=== PATIENT | female | born 1945 | race Caucasian/White ===

== ENCOUNTER 2022-09-27 20:11 | Inpatient (IN) | payer MEDICARE, BC, SELFPAY ==
--- NOTE | ~2022-09-27 | US_ITS ---
EXAMINATION: US RETROPERITONEAL LIMITED (RENAL ONLY) CLINICAL INFORMATION: Pulmonary edema. HIDA when.. COMPARISON: None TECHNIQUE: Grayscale and color Doppler imaging was obtained of both kidneys. FINDINGS: RIGHT KIDNEY: 10.2 x 4.1 x 4.7 cm (SAG x AP x TRV). The kidney is normal in size, contour, and echogenicity. Renal cortical thickness is normal. No calculi or focal parenchymal lesions. No hydronephrosis. LEFT KIDNEY: 9.1 x 5.2 x 3.7 cm (SAG x AP x TRV). The kidney is normal in size, contour, and echogenicity. Renal cortical thickness is normal. 8mm simple appearing lower pole cyst for which no follow-up imaging is required. No renal calculi or hydronephrosis of the left kidney. US/US renal BI IMPRESSION: No renal calculi or hydronephrosis of either kidney.
--- NOTE | ~2022-09-27 | XR_ITS ---
EXAMINATION: XR CHEST CLINICAL INFORMATION: Suspected pulmonary edema. COMPARISON: None TECHNIQUE: Frontal view of the chest was obtained. FINDINGS: Bilateral diffuse perihilar, upper lobar and lower lobar airspace opacities noted with trace amount of fluid within the right minor fissure and possible trace fluid within both pleural space. The heart size is within normal limits. The findings may represent pulmonary edema versus multilobar pneumonia or combination thereof. XR/XR chest 1V IMPRESSION: Abnormal chest radiograph showing bilateral diffuse airspace disease, possible bilateral trace pleural effusion and tiny trace fluid within the right minor fissure, may represent pulmonary edema versus multilobar pneumonia versus combination thereof.
--- NOTE | ~2022-09-27 | US_ITS ---
EXAMINATION: ULTRASOUND RENAL WITH DOPPLER CLINICAL INFORMATION: Hypertensive urgency COMPARISON: Renal ultrasound September 28, 2022 TECHNIQUE: Real-time grayscale, color Doppler, and duplex Doppler evaluation of the kidneys and renal vasculature was performed. FINDINGS: RENAL MEASUREMENTS: Right: 10.1 x 4.7 x 5.5 cm (Sag x AP x TV) Left: 10.0 x 5.1 x 3.7 cm (Sag x AP x TV) The renal parenchyma appears normal. No hydronephrosis or nephrolithiasis. DOPPLER INTERROGATION: Aorta: 146 cm/sec Right Main Renal Artery: Proximal: 179 cm/sec Mid: 167 cm/sec Distal: 103 cm/sec Left Main Renal Artery: Proximal: 107 cm/sec Mid: 135 cm/sec Distal: 116 cm/sec RESISTIVE INDICES: Right: 0.75-0.81 Left: 0.8-0.86 Renal-Aortic Ratio (RAR): Right: Cannot be accurately calculated due to elevated aortic velocity Left: Cannot be accurately calculated due to elevated aortic velocity US/US renal doppler IMPRESSION: -Mildly elevated velocity within the proximal right main renal artery may represent a mild stenosis. This can always be further evaluated with nonemergent CTA imaging of the abdomen if clinically indicated. -Resistive indices of both kidneys are at the upper limits of normal. Clinical correlation recommended. Mild medical renal disease not excluded.
[2022-09-27 20:19] VITALS: BP 196/99; BP 240/120; PULSE 122; PULSE 130; RESP 26; O2SAT 84; O2SAT 94; BMI 30.5
--- NOTE | 2022-09-27 20:20 | ECG_ITS ---
Test Reason : sob Blood Pressure : / mmHG Vent. Rate : 123 BPM Atrial Rate : 123 BPM P-R Int : 154 ms QRS Dur : 144 ms QT Int : 378 ms P-R-T Axes : 046 -16 099 degrees QTc Int : 541 ms Sinus tachycardia Possible Left atrial enlargement Left bundle branch block Abnormal ECG No previous ECGs available Referred By: Toya Dominguez Electronically Signed By:IRA PARKER MD
--- NOTE | 2022-09-27 20:23 | ED.SOB ---
HPI - SOB/Dyspnea General Chief Complaint: Dyspnea Stated Complaint: Respiratory Distress Time Seen by Provider: 09/27/22 20:18 Source: patient and EMS Mode of arrival: EMS Limitations: other (Shortness of breath) History of Present Illness HPI Narrative: Patient comes to the emergency room via [place] [facility]. EMS reports that the patient called because she had sudden onset of shortness of breath. Patient was saturating 84% on room air, stating that she fell as she had fluid in her lungs. Patient initially refused CPAP, eventually she was convinced and she started wearing the CPAP and started saturating in the mid 90s. Patient already received per EMS 1 in of nitropaste and started on CPAP. Arrival to the emergency room, patient received 80 mg of Lasix Related Data Home Medications Medication Instructions Recorded Confirmed coQ10 (ubiquinol) 100 mg capsule 100 mg PO DAILY 09/27/22 09/27/22 multivitamin 1 tab PO DAILY 09/27/22 09/27/22 pravastatin 40 mg tablet 40 mg PO BEDTIME 09/27/22 09/27/22 Allergies Allergy/AdvReac Type Severity Reaction Status Date / Time Unable to Assess Allergy Verified 09/27/22 20:18 Review of Systems Review of Systems: Constitutional : No Weight loss, No Fever, No Chills, No Night Sweats, No Fatigue, No Malaise ENT/Mouth : No Hearing loss, No Ear Pain, No Nasal Congestion, No Sinus Pain, No Hoarseness, No sore throat, No Rhinorrhea, No Swallowing Difficulty Eyes: No Eye Pain, No Swelling, No Redness, No Foreign Body, No Discharge, No Vision Changes Cardiovascular : No Chest Pain, No SOB, No Dyspnea on Exertion, No Orthopnea, No Edema, No Palpitations Respiratory : Rapid onset of severe shortness of breath Gastrointestinal : No Nausea, No Vomiting, No Diarrhea, No Constipation, No abdominal Pain, No Hematochezia, No Melena Genitourinary : no irregular bleeding, No Dysuria, No Urinary Frequency, No Hematuria, No Urinary Incontinence, No Urgency, No Flank Pain, No Urinary Flow Changes, No Hesitancy Musculoskeletal : No joint pain, No Myalgias, No Joint Swelling Skin : No Skin Lesions, No rash Neuro : No Weakness, No Numbness, No Paresthesias, No Loss of Consciousness, No Dizziness, No Headache Psych : No Anxiety/Panic, No Depression, No SI/HI/AH/VH, No Social Issues, Heme/Lymph: No Bruising, No Bleeding,No Lymphadenopathy Endocrine : No Polyuria, No Polydipsia, No Temperature Intolerance [facility] Past Medical History Medical History (Updated 09/27/22 @ 22:45 by Toya Dominguez MD) Mitral valve stenosis Social History Social History Advance Directives: No Physical Exam Vital Signs: Vital Signs: Last Vital Signs Temp 98.0 F 09/27/22 21:14 Pulse 85 09/27/22 21:14 Resp 22 H 09/27/22 21:14 BP 119/72 09/27/22 21:14 Pulse Ox 94 09/27/22 21:14 O2 Del Method 09/27/22 21:14 FiO2 30 09/27/22 21:14 BMI result Body Mass Index 30.5 Const: Other: Appearance: Alert. Oriented X3. Very anxious, significant shortness of breath Eyes: Pupils equal, round and reactive to light. ENT: Pharynx normal. Neck: Normal inspection. Neck supple. No lymph nodes noted. No crepitus CVS: Normal heart rate and rhythm. Pulses normal. Normal S1 and S2 Respiratory: Significant shortness of breath, bilateral rales and crackles, no wheezing Abdomen: Soft and nontender. No rigidity. No distention. Skin: Skin warm and dry. Normal skin color. Normal skin turgor. Extremities: No lower extremity edema. No Lacerations. No Rash Neuro: Oriented X 3. No motor deficit. No sensory deficit. Moving all extremities. No slurred speech. CN 2 through 12 grossly intact Psych: calm, cooperative Course Course Course Narrative: -prior to arrival, patient received nitro paste and was started on CPAP. Medications Administered Discontinued Medications Generic Name Dose Route Start Last Admin Trade Name Freq PRN Reason Stop Dose Admin Furosemide 80 mg 09/27/22 20:18 09/27/22 20:32 Furosemide 100 Mg/10 Ml Vial IVPUSH 09/27/22 20:19 80 mg ONCE ONE Administration Protocol Labetalol HCl 10 mg 09/27/22 20:46 09/27/22 20:51 Labetalol Hcl 100 Mg/20 Ml Vial IVPUSH 09/27/22 20:47 10 mg ONCE ONE Administration Medical Decision Making Medical Decision Making MDM Narrative: -patient's initial blood pressure was over 220 systolic. Patient received IV Lasix 80 mg, was started on CPAP, given nitroglycerin patch, and since the blood pressure was not improving, labetalol was given. -patient has no history of hypertension or CHF. -patient was eventually weaned off CPAP and now is on 2 L of oxygen, patient speaking full sentences, feeling well, blood pressure 119/72. -chest x-ray shows pulmonary edema. Chest x-ray was read as possible infiltrate. At this time, I do not suspect pneumonia at all. Patient has not had any symptoms until the shortness of breath started suddenly which is compatible with CHF. Antibiotics are not indicated at this time. Differential Diagnosis Differential Diagnoses: The differential diagnosis associated with the presentation includes (CHF, flash pulmonary edema) Admission/Observation Consideration of admission/observation: Escalation of care including admission/observation considered Consult Healthcare Provider Management of the patient was discussed with: Hospitalist Lab Data MDM Lab Attestation statement: I reviewed the patient's lab results. 09/27/22 21:00 09/27/22 21:01 Labs: Lab Results 09/27/22 09/27/22 09/27/22 Range/Units 21:00 21:00 21:00 WBC 7.2 (4.8-10.8) X10*3/uL RBC 4.72 (4.20-5.50) X10*6/uL Hgb 14.0 (12.0-16.0) g/dl Hct 42.3 (37.0-47.0) % MCV 89.6 (80.0-98.0) fL MCH 29.7 (27.0-33.0) pg MCHC 33.1 (31.0-35.0) g/dl RDW 13.0 (11.0-16.0) % Plt Count 197 (160-400) X10*3/uL MPV 11.5 (9.4-12.3) fL Immature Gran % (Auto) 0.3 (0.0-0.4) % Neut % (Auto) 82.6 H (45-73) % Lymph % (Auto) 10.1 L (20-40) % [place] % (Auto) 4.1 (2-11) % Eos % (Auto) 2.3 (0-4) % Baso % (Auto) 0.6 (0-2) % Lymph # (Auto) 0.7 L (1.2-4.9) X10*3/uL [place] # (Auto) 0.3 (0.1-1.2) X10*3/uL Eos # (Auto) 0.2 (0.0-0.4) X10*3/uL Baso # (Auto) 0.0 (0.0-0.2) X10*3/uL Abs Immat Gran (auto) 0.02 (0.00-0.03) X10*3/uL Absolute Neuts (auto) 6.0 (2.0-8.3) x10*3/uL Absolute Nucleated RBC 0.000 (0.0-0.012) X10*3/uL Nucleated RBC % (auto) 0.0 (0.0-0.2) /100WBC PT 10.7 (10.0-13.1) SEC INR 0.9 (0.9-1.1) VBG pH (7.32-7.43) VBG pCO2 mmHg VBG pO2 mmHg VBG HCO3 (22-26) mmol/L VBG O2 Saturation % VBG Base Excess mmol/L Sodium (135-145) mmol/L Potassium (3.3-5.1) mmol/L Chloride (96-108) mmol/L Carbon Dioxide (22-29) mmol/L Anion Gap (12-20) BUN (9-16) mg/dL Creatinine (0.5-1.4) mg/dL Estim Creat Clear Calc Estimated GFR Random Glucose (60-115) mg/dL Lactic Acid 1.1 (0.5-2.0) mmol/L Calcium (8.4-10.2) mg/dL Magnesium (1.6-2.6) mg/dL Total Bilirubin (0.0-1.0) mg/dL Direct Bilirubin (0.0-0.5) mg/dL AST (5-31) U/L ALT (0-31) U/L Alkaline Phosphatase (39-117) U/L Troponin I High Sens (<3.5-17.0) ng/L B-Natriuretic Peptide (<100) pg/mL Total Protein (6.5-8.0) g/dL Albumin (3.5-5.0) g/dL COVID-19 (SHY) (Negative) COVID-19 Clin Com 09/27/22 09/27/22 09/27/22 Range/Units 21:00 21:00 21:00 WBC (4.8-10.8) X10*3/uL RBC (4.20-5.50) X10*6/uL Hgb (12.0-16.0) g/dl Hct (37.0-47.0) % MCV (80.0-98.0) fL MCH (27.0-33.0) pg MCHC (31.0-35.0) g/dl RDW (11.0-16.0) % Plt Count (160-400) X10*3/uL MPV (9.4-12.3) fL Immature Gran % (Auto) (0.0-0.4) % Neut % (Auto) (45-73) % Lymph % (Auto) (20-40) % [place] % (Auto) (2-11) % Eos % (Auto) (0-4) % Baso % (Auto) (0-2) % Lymph # (Auto) (1.2-4.9) X10*3/uL [place] # (Auto) (0.1-1.2) X10*3/uL Eos # (Auto) (0.0-0.4) X10*3/uL Baso # (Auto) (0.0-0.2) X10*3/uL Abs Immat Gran (auto) (0.00-0.03) X10*3/uL Absolute Neuts (auto) (2.0-8.3) x10*3/uL Absolute Nucleated RBC (0.0-0.012) X10*3/uL Nucleated RBC % (auto) (0.0-0.2) /100WBC PT (10.0-13.1) SEC INR (0.9-1.1) VBG pH (7.32-7.43) VBG pCO2 mmHg VBG pO2 mmHg VBG HCO3 (22-26) mmol/L VBG O2 Saturation % VBG Base Excess mmol/L Sodium (135-145) mmol/L Potassium (3.3-5.1) mmol/L Chloride (96-108) mmol/L Carbon Dioxide (22-29) mmol/L Anion Gap (12-20) BUN (9-16) mg/dL Creatinine (0.5-1.4) mg/dL Estim Creat Clear Calc Estimated GFR Random Glucose (60-115) mg/dL Lactic Acid (0.5-2.0) mmol/L Calcium (8.4-10.2) mg/dL Magnesium (1.6-2.6) mg/dL Total Bilirubin (0.0-1.0) mg/dL Direct Bilirubin (0.0-0.5) mg/dL AST (5-31) U/L ALT (0-31) U/L Alkaline Phosphatase (39-117) U/L Troponin I High Sens 10.0 (<3.5-17.0) ng/L B-Natriuretic Peptide 218 H (<100) pg/mL Total Protein (6.5-8.0) g/dL Albumin (3.5-5.0) g/dL COVID-19 (SHY) Negative (Negative) COVID-19 Clin Com See Note 09/27/22 09/27/22 Range/Units 21:01 21:11 WBC (4.8-10.8) X10*3/uL RBC (4.20-5.50) X10*6/uL Hgb (12.0-16.0) g/dl Hct (37.0-47.0) % MCV (80.0-98.0) fL MCH (27.0-33.0) pg MCHC (31.0-35.0) g/dl RDW (11.0-16.0) % Plt Count (160-400) X10*3/uL MPV (9.4-12.3) fL Immature Gran % (Auto) (0.0-0.4) % Neut % (Auto) (45-73) % Lymph % (Auto) (20-40) % [place] % (Auto) (2-11) % Eos % (Auto) (0-4) % Baso % (Auto) (0-2) % Lymph # (Auto) (1.2-4.9) X10*3/uL [place] # (Auto) (0.1-1.2) X10*3/uL Eos # (Auto) (0.0-0.4) X10*3/uL Baso # (Auto) (0.0-0.2) X10*3/uL Abs Immat Gran (auto) (0.00-0.03) X10*3/uL Absolute Neuts (auto) (2.0-8.3) x10*3/uL Absolute Nucleated RBC (0.0-0.012) X10*3/uL Nucleated RBC % (auto) (0.0-0.2) /100WBC PT (10.0-13.1) SEC INR (0.9-1.1) VBG pH 7.38 (7.32-7.43) VBG pCO2 36 mmHg VBG pO2 93 mmHg VBG HCO3 21 L (22-26) mmol/L VBG O2 Saturation 98.0 % VBG Base Excess -2.8 mmol/L Sodium 140 (135-145) mmol/L Potassium 4.2 (3.3-5.1) mmol/L Chloride 105 (96-108) mmol/L Carbon Dioxide 25 (22-29) mmol/L Anion Gap 14 (12-20) BUN 23 H (9-16) mg/dL Creatinine 0.84 (0.5-1.4) mg/dL Estim Creat Clear Calc 51.7 Estimated GFR > 60 Random Glucose 125 H (60-115) mg/dL Lactic Acid (0.5-2.0) mmol/L Calcium 9.3 (8.4-10.2) mg/dL Magnesium 1.8 (1.6-2.6) mg/dL Total Bilirubin 0.9 (0.0-1.0) mg/dL Direct Bilirubin 0.3 (0.0-0.5) mg/dL AST 23 (5-31) U/L ALT 18 (0-31) U/L Alkaline Phosphatase 106 (39-117) U/L Troponin I High Sens (<3.5-17.0) ng/L B-Natriuretic Peptide (<100) pg/mL Total Protein 7.2 (6.5-8.0) g/dL Albumin 4.2 (3.5-5.0) g/dL COVID-19 (SHY) (Negative) COVID-19 Clin Com Independent Interpretation I performed an independent interpretation of an: Plain X-Ray (My interpretation of the chest x-ray: Pulmonary edema) Radiology Impression Discussion of test interpretation with radiology: I have reviewed the radiologist's reading. Radiologist Impression: FINDINGS: Bilateral diffuse perihilar, upper lobar and lower lobar airspace opacities noted with trace amount of fluid within the right minor fissure and possible trace fluid within both pleural space. The heart size is within normal limits. The findings may represent pulmonary edema versus multilobar pneumonia or combination thereof. XR/XR chest 1V IMPRESSION: Abnormal chest radiograph showing bilateral diffuse airspace disease, possible bilateral trace pleural effusion and tiny trace fluid within the right minor fissure, may represent pulmonary edema versus multilobar pneumonia versus combination thereof. Critical Care Time Critical Care Time Critical Care Time: Yes Total Critical Care Time: 60 Attestation: I have personally provided critical care time. Time includes review of lab data, radiology results, discussion with consultants, and monitoring for potential decompensation. Intervention performed as documented. Discharge Plan Discharge Clinical Impression: Flash pulmonary edema Patient Disposition: Admitted As Inpatient Prescriptions: No Action multivitamin Tablet 1 tab PO DAILY pravastatin 40 mg Tablet 40 mg PO BEDTIME coQ10 (ubiquinol) 100 mg Capsule 100 mg PO DAILY
[2022-09-27] MEDS: Furosemide 100 MG/10 ML VIAL 80 MG IVPUSH (20:32)
--- NOTE | 2022-09-27 20:39 | PC.NURSE ---
Pt CAMP x 4 weaking a CPap fio2 at 30 % . RN administered lasix 80 mg IV per order.
[2022-09-27 20:47] VITALS: PULSE 123; RESP 26; O2SAT 96
[2022-09-27] MEDS: Labetalol HCL 100 MG/20 ML VIAL 10 MG IVPUSH (20:51)
[2022-09-27 20:57] VITALS: BP 158/100; PULSE 117; RESP 20; O2SAT 94
--- NOTE | 2022-09-27 21:09 | PC.NURSE ---
Purewic placed for comfort. Respiratory therapy at pt bedside to assist with covid test and covid swab.
[2022-09-27 21:11] LABS: MANUAL DIFF FLAG NO
[2022-09-27 21:14] VITALS: BP 119/72; PULSE 85; RESP 22; TEMP 36.7; O2SAT 94
[2022-09-27 21:15] LABS: Basophils Percent Auto 0.6 % (0-2); Eosinophils Absolute Auto 0.2 X10*3/uL (0.0-0.4); Eosinophils Percent Auto 2.3 % (0-4); Hematocrit 42.3 % (37.0-47.0); Imm Gran Abs Auto 0.02 X10*3/uL (0.00-0.03); Imm Gran Pct Auto 0.3 % (0.0-0.4); Lymphocytes Absolute Auto 0.7 X10*3/uL (1.2-4.9); Lymphocytes Percent Auto 10.1 % (20-40); Mean Corpuscular HGB Conc 33.1 g/dl (31.0-35.0); Mean Corpuscular Hemoglobin 29.7 pg (27.0-33.0); Mean Corpuscular Volume 89.6 fL (80.0-98.0); Mean Platelet Volume 11.5 fL (9.4-12.3); Monocytes Absolute Auto 0.3 X10*3/uL (0.1-1.2); Monocytes Percent Auto 4.1 % (2-11); Neutrophils Percent Auto 82.6 % (45-73); Platelet Count 197 X10*3/uL (160-400); Red Blood Count 4.72 X10*6/uL (4.20-5.50); White Blood Count 7.2 X10*3/uL (4.8-10.8)
[2022-09-27 21:18] LABS: INTERNATIONAL NORM RATIO 0.9 (0.9-1.1); Prothrombin Time 10.7 SEC (10.0-13.1)
--- NOTE | 2022-09-27 21:24 | PHA.MEDREC ---
Pharmacy Consult ? Medication Reconciliation Pharmacy has completed the medication reconciliation.
[2022-09-27 21:31] LABS: VBG Base Excess -2.8 mmol/L; VBG HCO3 21 mmol/L (22-26); VBG pCO2 36 mmHg; VBG pH 7.38 (7.32-7.43); VBG pO2 93 mmHg
[2022-09-27 21:34] LABS: Lactic Acid 1.1 mmol/L (0.5-2.0)
[2022-09-27 21:38] LABS: Alanine Aminotransferase 18 U/L (0-31); Albumin Level 4.2 g/dL (3.5-5.0); Alkaline Phosphatase 106 U/L (39-117); Anion Gap 14 (12-20); Aspartate Amino Transferase 23 U/L (5-31); Bilirubin Direct 0.3 mg/dL (0.0-0.5); Bilirubin Total 0.9 mg/dL (0.0-1.0); Blood Urea Nitrogen 23 mg/dL (9-16); Calcium 9.3 mg/dL (8.4-10.2); Carbon Dioxide 25 mmol/L (22-29); Chloride 105 mmol/L (96-108); Creatinine Clr Calc Pharmacy 51.7; Estimated Glomerular Filt Rate > 60; Glucose Random 125 mg/dL (60-115); Magnesium 1.8 mg/dL (1.6-2.6); Potassium 4.2 mmol/L (3.3-5.1); Sodium 140 mmol/L (135-145); Total Protein 7.2 g/dL (6.5-8.0)
[2022-09-27 21:48] LABS: B Type Natriuretic Peptide 218 pg/mL (<100)
[2022-09-27 21:49] LABS: COVID-19 Test Negative (Negative); IDNOW Serial# 08D9AD1C
[2022-09-27 22:02] LABS: Venous Blood Gas Refer to POC result
--- NOTE | 2022-09-27 22:24 | PM.IMHP ---
History of Present Illness Date of Service: 09/27/22 Chief Complaint: Dyspnea This is a 77-year-old female with pertinent history of mitral stenosis, mixed hyperlipidemia who presents to the emergency department for evaluation of dyspnea. Patient presents today for sudden onset of dyspnea. Upon EMS arrival, patient was found to be hypoxemic and saturating in the low 80s on room air. When she arrived, patient's blood pressure was 196/99. Patient was found to have bilateral crackles and imaging was concerning for pulmonary edema. Patient was placed on CPAP and nitro paste and labetalol ordered. Patient states she never has had high blood pressure. She underwent DEBORAH at [facility] in August when she was told that she has mitral stenosis. Patient was asked to follow up with repeat echo in 6 months. Patient states her blood pressure is usually around 140/90. She was advised to take metoprolol but refused. Upon my evaluation, patient states her dyspnea improved and was on 2 L supplemental oxygen. Patient denies fever, chills, chest discomfort, palpitations, abdominal pain, changes in urinary or bowel habits. Review of Systems Constitutional: Constitutional: Reports no additional constitutional complaints Cardiovascular: Cardiovascular: Reports dyspnea Respiratory: Respiratory: Reports dyspnea Gastrointestinal: Gastrointestinal: Reports no additional gastrointestinal complaints Genitourinary: Genitourinary: Reports no additional female genitourinary complaints [facility] Medical History Mitral valve stenosis Mixed hyperlipidemia Functional capacity: independent ambulation Pertinent family history: Not significant due to age Social History Advance Directives: No Meds Allergies Allergy/AdvReac Type Severity Reaction Status Date / Time Unable to Assess Allergy Verified 09/27/22 20:18 Active Medications: Current Medications Pharmacy Consult (Consult Rx Perform Med Rec) 1 each MISCELLANE ONCE PRN PRN Reason: Consult order Home Medications Medication Instructions Recorded Confirmed Last Taken Type coQ10 (ubiquinol) 100 mg capsule 100 mg PO DAILY 09/27/22 09/27/22 09/26/22 History multivitamin 1 tab PO DAILY 09/27/22 09/27/22 09/26/22 History pravastatin 40 mg tablet 40 mg PO BEDTIME 09/27/22 09/27/22 09/26/22 History Physical Exam Vital Signs and Narrative: Vital Signs: Last Vital Signs Temp 98.0 F 09/27/22 21:14 Pulse 85 09/27/22 21:14 Resp 22 H 09/27/22 21:14 BP 119/72 09/27/22 21:14 Pulse Ox 94 09/27/22 21:14 O2 Del Method 09/27/22 21:14 FiO2 30 09/27/22 21:14 BMI result Body Mass Index 30.5 Elderly female lying in bed in mild distress on supplemental oxygen Neck supple, no JVD Regular rate and rhythm, S1-S2 heard Bilateral crackles Abdomen soft nontender, no guarding, no rigidity Patient is awake, alert and oriented to self, place, time and person ; no focal motor deficit Psych: Anxious No pedal edema Results Labs 09/27/22 21:00 09/27/22 21:01 Labs: Laboratory Results - last 24 hr 09/27/22 09/27/22 09/27/22 21:00 21:00 21:00 MCV 89.6 MCH 29.7 MCHC 33.1 RDW 13.0 Plt Count 197 MPV 11.5 Immature Gran % (Auto) 0.3 Neut % (Auto) 82.6 H Lymph % (Auto) 10.1 L [place] % (Auto) 4.1 Eos % (Auto) 2.3 Baso % (Auto) 0.6 Lymph # (Auto) 0.7 L [place] # (Auto) 0.3 Eos # (Auto) 0.2 Baso # (Auto) 0.0 Abs Immat Gran (auto) 0.02 Absolute Neuts (auto) 6.0 Absolute Nucleated RBC 0.000 Nucleated RBC % (auto) 0.0 PT 10.7 INR 0.9 VBG pH VBG pCO2 VBG pO2 VBG HCO3 VBG O2 Saturation VBG Base Excess Anion Gap Estim Creat Clear Calc Estimated GFR Random Glucose Lactic Acid 1.1 Calcium Magnesium Total Bilirubin Direct Bilirubin AST ALT Alkaline Phosphatase Troponin I High Sens B-Natriuretic Peptide Total Protein Albumin COVID-19 (SHY) COVID-19 Clin Com 09/27/22 09/27/22 09/27/22 21:00 21:00 21:00 MCV MCH MCHC RDW Plt Count MPV Immature Gran % (Auto) Neut % (Auto) Lymph % (Auto) [place] % (Auto) Eos % (Auto) Baso % (Auto) Lymph # (Auto) [place] # (Auto) Eos # (Auto) Baso # (Auto) Abs Immat Gran (auto) Absolute Neuts (auto) Absolute Nucleated RBC Nucleated RBC % (auto) PT INR VBG pH VBG pCO2 VBG pO2 VBG HCO3 VBG O2 Saturation VBG Base Excess Anion Gap Estim Creat Clear Calc Estimated GFR Random Glucose Lactic Acid Calcium Magnesium Total Bilirubin Direct Bilirubin AST ALT Alkaline Phosphatase Troponin I High Sens 10.0 B-Natriuretic Peptide 218 H Total Protein Albumin COVID-19 (SHY) Negative COVID-19 Clin Com See Note 09/27/22 09/27/22 21:01 21:11 MCV MCH MCHC RDW Plt Count MPV Immature Gran % (Auto) Neut % (Auto) Lymph % (Auto) [place] % (Auto) Eos % (Auto) Baso % (Auto) Lymph # (Auto) [place] # (Auto) Eos # (Auto) Baso # (Auto) Abs Immat Gran (auto) Absolute Neuts (auto) Absolute Nucleated RBC Nucleated RBC % (auto) PT INR VBG pH 7.38 VBG pCO2 36 VBG pO2 93 VBG HCO3 21 L VBG O2 Saturation 98.0 VBG Base Excess -2.8 Anion Gap 14 Estim Creat Clear Calc 51.7 Estimated GFR > 60 Random Glucose 125 H Lactic Acid Calcium 9.3 Magnesium 1.8 Total Bilirubin 0.9 Direct Bilirubin 0.3 AST 23 ALT 18 Alkaline Phosphatase 106 Troponin I High Sens B-Natriuretic Peptide Total Protein 7.2 Albumin 4.2 COVID-19 (SHY) COVID-19 Clin Com Imaging Radiologist's Impressions: Impressions Chest X-Ray 09/27/22 20:25 IMPRESSION: Abnormal chest radiograph showing bilateral diffuse airspace disease, possible bilateral trace pleural effusion and tiny trace fluid within the right minor fissure, may represent pulmonary edema versus multilobar pneumonia versus combination thereof. Assessment and Plan (1) Flash pulmonary edema: Status: Acute Plan This is a 77-year-old female with pertinent history of mitral stenosis, mixed hyperlipidemia who presents to the emergency department for evaluation of dyspnea. #. Acute hypoxemic respiratory failure secondary to pulmonary edema in the setting of hypertensive emergency: Initially was placed on CPAP in the ER. Currently on 2 L supplemental oxygen. Was given nitro paste and labetalol in the ER with improvement in blood pressure. Patient resistant to p.o. antihypertensives. Does have history of mitral stenosis. Obtain records from [facility] Consulting Cardiology, appreciate assistance. Continue IV Lasix and monitor oxygen saturation. #. Mixed hyperlipidemia: On statin DVT prophylaxis: Lovenox 40 mg daily Full code Cardiac diet Admit as inpatient and will require two night minimum hospital stay for supplemental oxygen Time Spent With Patient Time: Total time managing care of this patient today ____ minutes. Quality Stroke Does the patient have a stroke diagnosis?: No VTE Prior VTE?: No VTE Risk Level:: Medical - moderate - high VTE Device Contraindication: Treatment Not Indicated VTE Drug Contraindication: N/A - Med Ordered
[2022-09-28] MEDS: Enoxaparin Sodium 40 MG/0.4 ML SYRINGE SUBCUT ×2 (00:06→23:27)
[2022-09-28] MEDS: 0.9 % Sodium Chloride Flush 3 ML SYRINGE IVFLUSH ×4 (00:07→20:48)
[2022-09-28 05:58] VITALS: BP 128/59; PULSE 80; RESP 16; TEMP 36.6; O2SAT 99
[2022-09-28 06:29] LABS: MANUAL DIFF FLAG NO
[2022-09-28 06:37] LABS: Basophils Percent Auto 0.5 % (0-2); Eosinophils Absolute Auto 0.1 X10*3/uL (0.0-0.4); Eosinophils Percent Auto 1.2 % (0-4); Hematocrit 39.2 % (37.0-47.0); Hemoglobin 12.7 g/dl (12.0-16.0); Imm Gran Abs Auto 0.02 X10*3/uL (0.00-0.03); Imm Gran Pct Auto 0.3 % (0.0-0.4); Lymphocytes Absolute Auto 1.1 X10*3/uL (1.2-4.9); Mean Corpuscular HGB Conc 32.4 g/dl (31.0-35.0); Mean Corpuscular Hemoglobin 28.8 pg (27.0-33.0); Mean Corpuscular Volume 88.9 fL (80.0-98.0); Mean Platelet Volume 11.4 fL (9.4-12.3); Monocytes Absolute Auto 0.5 X10*3/uL (0.1-1.2); Monocytes Percent Auto 6.3 % (2-11); Neutrophils Percent Auto 77.7 % (45-73); Platelet Count 194 X10*3/uL (160-400); Red Blood Count 4.41 X10*6/uL (4.20-5.50); Red Cell Distribution Width 13.1 % (11.0-16.0); White Blood Count 7.7 X10*3/uL (4.8-10.8)
[2022-09-28] MEDS: Acetaminophen 325 MG TABLET 650 MG PO (06:41)
[2022-09-28 06:50] LABS: Anion Gap 16 (12-20); Blood Urea Nitrogen 23 mg/dL (9-16); Carbon Dioxide 23 mmol/L (22-29); Chloride 105 mmol/L (96-108); Creatinine Clr Calc Pharmacy 58.7; Estimated Glomerular Filt Rate > 60; Glucose Random 96 mg/dL (60-115); Potassium 4.2 mmol/L (3.3-5.1); Sodium 140 mmol/L (135-145)
[2022-09-28 07:04] VITALS: BP 129/53; PULSE 70; RESP 18; O2SAT 99
--- NOTE | 2022-09-28 08:29 | MHC.EDTECH ---
Assisted pt to bedside commode. Pt returned to bed comfortably, bed in low, locked position. Call edwards in reach, able to make needs known.
[2022-09-28 08:37] LABS: B Type Natriuretic Peptide 221 pg/mL (<100)
[2022-09-28] MEDS: ALPRAZolam 0.25 MG TABLET PO (09:52)
[2022-09-28] MEDS: Multivitamin TABLET 1 TAB PO (09:52)
--- NOTE | 2022-09-28 10:00 | CA_ITS ---
Transthoracic Echocardiogram Patient (Last, First, Middle): Autumn Marie C Gender: Female Date of : 1945 Age: 77 Procedure Date: 09/28/2022 Procedure Type: Transthoracic Echocardiogram Location: ER Height: 157.48 cm Weight: 75.75 kg BSA: 1.77 m2 Heart Rate: 79 bpm BP: 124 / 58 mmHg Etl Lead: CANDIDO Referring MD: Gudelia ESQUEDA Hat Lacer: Enrrique Alonso MD Symptoms: pulm edema Study Quality: Adequate ECG Rhythm: Sinus Conclusions: - 1. Normal LV systolic function with impaired relaxation filling pattern, filling pressures cannot be evaluated due to presence of mitral stenosis 2. At least mildly dilated left atrium 3. Moderate aortic stenosis 4. 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 Mild to moderate elevation right bronchus systolic pressure 6. No pericardial effusion Findings Left Ventricle Normal left ventricular size, thickness, and systolic function. The visually estimated ejection fraction is between 60-65%. Spectral Doppler is indicative of an impaired relaxation filling pattern. There is mild septal asymmetric hypertrophy. Right Ventricle Normal right ventricular cavity size and systolic function. Atria The left atrium is mildly dilated. There is no evidence of interatrial shunt. The right atrium is normal in size. Aortic Valve The aortic valve was not well visualized. There is mild calcification of the aortic valve. There is moderate aortic valve stenosis. The mean gradient is 25 mmHg. The aortic valve area is 1.39 cm2. There is no aortic valve regurgitation. Mitral Valve The mitral valve appears rheumatic. There is moderate anterior and posterior mitral leaflet thickening. There is severe mitral valve stenosis. MVA by continuity equation as well PISA is 1.04-1.11 sq cm, c/y severe MS. Pulmonic Valve The pulmonic valve is likely normal. There is mild pulmonic valve regurgitation. Tricuspid Valve Normal tricuspid valve structure. There is mild tricuspid valve regurgitation. Normal right atrial pressure. Mild to moderate pulmonary hypertension is present. Great Vessels All visible segments of the aorta are normal in size. The pulmonary artery was not well visualized. Venous The inferior vena cava is normal in size and collapses greater than 50% with inspiration. Pericardium/Pleural There is no evidence of pericardial effusion. Prior Study Comparison No prior study available for comparison. Measurements 2D Linear Measurements IVSd: 1.43 0.6-0.9/0.6-1.0 cm LVIDd: 4.23 3.9-5.3/4.2-5.9 cm LVIDd Index: 2.39 2.4-3.2/2.2-3.1 cm/m2 LVIDs: 2.70 2.0-3.6 cm LVPWd: 0.89 0.7-1.1 cm LA Diam: 4.30 2.7-3.8/3.0-4.0 cm LAIDs Index: 2.43 1.5-2.3 cm/m2 LV Mass: 213.14 67-162/88-224 g LV Mass Index: 120.42 43-95/49-115 g/m2 LVOT Diam: 1.80 3.0+(-)1.3 cm 2D Systolic Function EF 4C: 56.90 >55% EF 2C: 61.90 >55% EF BiP: 59.90 >55% Mitral Valve MV VTI: 0.75 MV Pk Dewayne: 2.59 MV Mn Dewayne: 1.79 MV Pk Grad: 27.00 MV Mn Grad: 14.00 MV Pk E: 1.83 MV PK A: 2.21 MV Decel Time: 258.00 E/A: 0.80 E'Lateral: 6.96 E'Medial: 5.66 E/E' Med: 32.30 E/E' Lat: 26.30 PHT: 76.00 MVA PHT: 2.89 MVA Continuity: 1.09 Decel [place]: 7.09 Aortic Valve AoV Pk Dewayne: 3.36 AoV Mn Dewayne: 2.35 AoV VTI: 0.67 AoV Pk Grad: 45.00 Aov Mn Grad: 25.00 NEETA Cont.VTI: 1.39 AI Pk Dewayne: 4.07 AI [place]: 2.85 LVOT LVOT Pk Dewayne: 1.71 LVOT Mn Dewayne: 1.23 LVOT VTI: 0.37 LVOT Pk Grad: 12.00 LVOT Mn Grad: 7.00 LVOT Diam: 1.80 LVOT Area: 2.54 Diastolic Function MV Pk E: 1.83 MV Pk A: 2.21 E/A: 0.80 E'Medial: 5.66 E/E' Med: 32.30 E' Laterial: 6.96 E/E' Lat: 26.30 Right Ventricle TAPSE (mm): 23.00 TVS' Dewayne: 12.30 Tricuspid Valve TR Pk Dewayne: 3.27 TR Pk Grad: 43.00 RA Press: 3.00 RVSP: 46.00 Great Vessels Aorta Sinus of Valsalva: 2.20 2.0-3.5 cm Ao Asc: 3.10 2.1-3.4 cm Pulmonary Veins Pulm Vein S/D 1.30 Pulmonary Valve PV Pk Dewayne: 1.36 Peak PV Grad: 7.00 Updated in Other Vendor System with Status of Final Enrrique Alonso MD electronically signed on 09/29/2022 10:41:00 AM with status of Final
[2022-09-28 11:08] VITALS: BP 124/58; PULSE 65; RESP 14; O2SAT 97
--- NOTE | 2022-09-28 11:56 | PM.CNCAR ---
History of Present Illness History of Present Illness Date of Service: 09/28/22 Consult reason: other (Flash pulmonary edema) Chief complaint: Dyspnea Narrative: I was requested to see Autumn in cardiology consultation today for flash pulmonary edema. She is extremely anxious 77-year-old woman with prior history of mitral stenosis. As per her she has been evaluated in [facility] and has seen Dr Richie Alarcon at [facility] for consideration for possible intervention on the mitral stenosis. Seems like she is calcific mitral stenosis by echocardiogram she underwent DEBORAH in [facility]. Unfortunately not have a copy of that report. She was told that she would not be a good candidate for intervention as she had no symptoms. She is generally very active and independent and says can walk up and down stairs without any issues. Yesterday she had a large bowl of thigh food with probably lot of salt in it and subsequently started feeling not well and started feeling chest pressure and then got really short of breath. She go to local gas station because she needs to use the bathroom and by the time she got finish she got severely short of breath and arms for ambulance. Ambulance brought her to the emergency room here. She was noted to be in acute pulmonary edema with acute hypertension. She was diuresed and given IV medications control blood pressure. She rapidly improved and currently using without oxygen back to her baseline feeling well. Blood pressure is well controlled. Her EKG on admission shows sinus tachycardia with left bundle-branch block. She is not aware of having left bundle-branch block in the past. Her BNP is mildly elevated in the 200 range and her chest x-ray consistent with acute pulmonary edema. She is extremely anxious about this event. She also has had workup that has been fragmented. Review of Systems Constitutional: Constitutional: Reports no additional constitutional complaints Cardiovascular: Cardiovascular: Reports no additional cardiovascular complaints, Reports chest pain at rest, Denies leg edema, Denies lightheadedness, Denies Loss of Consciousness, Denies palpitations, Reports dyspnea, Reports dyspnea on exertion and Reports other (She felt like she was crackly although were) Respiratory: Respiratory: Denies no additional respiratory complaints, Reports dyspnea and Reports dyspnea on exertion Gastrointestinal: Gastrointestinal: Reports no additional gastrointestinal complaints Integumentary/Breasts: Skin/Breast: Reports system reviewed and no additional complaints, except as docu Neurologic: Reports system reviewed and no additional complaints, except as documented Psychiatric: Psychiatric: Reports no additional psychiatric complaints Endocrine: Endocrine: Reports no additional endocrine complaints and Denies palpitations Hematologic/Lymphatic: Hematologic/Lymphatic: Reports no additional hematologic/lymphatic complaints Allergic/Immunologic: Allergic/Immunologic: Reports no additional allergic/immunologic complaints [facility] Past Medical History Medical History Mitral valve stenosis Mixed hyperlipidemia Functional capacity: independent ambulation Social History Social History Patient Tobacco Use Status: Tobacco use Unknown Advance Directives: No Meds Allergies Allergy/AdvReac Type Severity Reaction Status Date / Time Unable to Assess Allergy Verified 09/27/22 20:18 Active Medications: Current Medications Acetaminophen (Acetaminophen 325 Mg Tablet) 650 mg PO Q6H PRN PRN Reason: Pain, Mild (Pain Scale 1-3) Last Admin: 09/28/22 06:41 Dose: 650 mg Enoxaparin Sodium (Enoxaparin Sodium 40 Mg/0.4 Ml Syringe) 40 mg SUBCUT Q24H JENNY Last Admin: 09/28/22 00:06 Dose: 40 mg Furosemide (Furosemide 40 Mg/4 Ml Vial) 40 mg IVPUSH ONCE JENNY; Protocol Furosemide (Furosemide 20 Mg Tablet) 20 mg PO DAILY JENNY; Protocol Labetalol HCl (Labetalol Hcl 100 Mg Tablet) 50 mg PO BID JENNY; Protocol Lorazepam (Lorazepam 0.5 Mg Tablet) 0.5 mg PO Q8H PRN PRN Reason: Anxiety Melatonin (Melatonin 3 Mg Tablet) 6 mg PO BEDTIME PRN PRN Reason: Insomnia Multivitamins/Vitamin C (Multivitamin Tablet) 1 tab PO DAILY JENNY Last Admin: 09/28/22 09:52 Dose: 1 tab Ondansetron HCl (Ondansetron Hcl 4 Mg/2 Ml Vial) 4 mg IVPUSH Q8H PRN PRN Reason: Nausea and Vomiting Pharmacy Consult (Consult Rx Perform Med Rec) 1 each MISCELLANE ONCE PRN PRN Reason: Consult order Pravastatin Sodium (Pravastatin Sodium 40 Mg Tablet) 40 mg PO BEDTIME JENNY Sodium Chloride (0.9 % Sodium Chloride Flush 3 Ml Syringe) 3 ml IVFLUSH QSHIFT [facility] Last Admin: 09/28/22 09:53 Dose: 3 ml Home Medications Medication Instructions Recorded Confirmed Last Taken Type coQ10 (ubiquinol) 100 mg capsule 100 mg PO DAILY 09/27/22 09/27/22 09/26/22 History multivitamin 1 tab PO DAILY 09/27/22 09/27/22 09/26/22 History pravastatin 40 mg tablet 40 mg PO BEDTIME 09/27/22 09/27/22 09/26/22 History Physical Exam Vital Signs: Vital Signs: Last Vital Signs Temp 97.9 F 09/28/22 05:58 Pulse 65 09/28/22 11:08 Resp 14 09/28/22 11:08 BP 124/58 L 09/28/22 11:08 Pulse Ox 97 09/28/22 11:08 O2 Del Method 09/28/22 11:08 O2 Flow Rate 2 09/28/22 11:08 FiO2 30 09/27/22 21:14 BMI result Body Mass Index 30.5 Const: General: cooperative, comfortable, no acute distress, alert, awake and anxious Nutritional Appearance: overweight Orientation/consciousness: patient oriented x3 Limitations: no limitations HEENT: Head: Yes normocephalic and Yes atraumatic Neck: Neck: Yes trachea midline, Yes supple and Yes no JVD Chest: Chest palpation & inspection: normal inspection of the chest Resp: Effort & Inspection: normal respiratory effort Auscultation: clear to auscultation bilaterally Cardio: Jugular venous distension: no JVD Palpation: normal PMI Rate: regular rate Rhythm: regular rhythm Heart sounds: S1 normal heart sound present, S2 normal heart sound present, no click, no gallops and Murmur heart sound present diastolic harsh and at the left sternal border Peripheral pulses: Peripheral pulses 2+ throughout GI: Auscultation: normal bowel sounds Skin: General skin exam: no rashes or lesions noted Neuro: General: patient oriented x3 and no focal motor deficits Extrem: General: Yes no clubbing, cyanosis or edema Objective Labs and Meds 09/28/22 06:22 09/28/22 06:22 Lab results: Laboratory Results - last 24 hr 09/27/22 09/27/22 09/27/22 21:00 21:00 21:00 WBC 7.2 RBC 4.72 Hgb 14.0 Hct 42.3 MCV 89.6 MCH 29.7 MCHC 33.1 RDW 13.0 Plt Count 197 MPV 11.5 Immature Gran % (Auto) 0.3 Neut % (Auto) 82.6 H Lymph % (Auto) 10.1 L [place] % (Auto) 4.1 Eos % (Auto) 2.3 Baso % (Auto) 0.6 Lymph # (Auto) 0.7 L [place] # (Auto) 0.3 Eos # (Auto) 0.2 Baso # (Auto) 0.0 Abs Immat Gran (auto) 0.02 Absolute Neuts (auto) 6.0 Absolute Nucleated RBC 0.000 Nucleated RBC % (auto) 0.0 PT 10.7 INR 0.9 VBG pH VBG pCO2 VBG pO2 VBG HCO3 VBG O2 Saturation VBG Base Excess Sodium Potassium Chloride Carbon Dioxide Anion Gap BUN Creatinine Estim Creat Clear Calc Estimated GFR Random Glucose Lactic Acid 1.1 Calcium Magnesium Total Bilirubin Direct Bilirubin AST ALT Alkaline Phosphatase Troponin I High Sens B-Natriuretic Peptide Total Protein Albumin COVID-19 (SHY) COVID-19 [place] 09/27/22 09/27/22 09/27/22 21:00 21:00 21:00 WBC RBC Hgb Hct MCV MCH MCHC RDW Plt Count MPV Immature Gran % (Auto) Neut % (Auto) Lymph % (Auto) [place] % (Auto) Eos % (Auto) Baso % (Auto) Lymph # (Auto) [place] # (Auto) Eos # (Auto) Baso # (Auto) Abs Immat Gran (auto) Absolute Neuts (auto) Absolute Nucleated RBC Nucleated RBC % (auto) PT INR VBG pH VBG pCO2 VBG pO2 VBG HCO3 VBG O2 Saturation VBG Base Excess Sodium Potassium Chloride Carbon Dioxide Anion Gap BUN Creatinine Estim Creat Clear Calc Estimated GFR Random Glucose Lactic Acid Calcium Magnesium Total Bilirubin Direct Bilirubin AST ALT Alkaline Phosphatase Troponin I High Sens 10.0 B-Natriuretic Peptide 218 H Total Protein Albumin COVID-19 (SHY) Negative COVID-19 [employer] Com See Note 09/27/22 09/27/22 09/28/22 21:01 21:11 06:22 WBC 7.7 RBC 4.41 Hgb 12.7 Hct 39.2 MCV 88.9 MCH 28.8 MCHC 32.4 RDW 13.1 Plt Count 194 MPV 11.4 Immature Gran % (Auto) 0.3 Neut % (Auto) 77.7 H Lymph % (Auto) 14.0 L [place] % (Auto) 6.3 Eos % (Auto) 1.2 Baso % (Auto) 0.5 Lymph # (Auto) 1.1 L [place] # (Auto) 0.5 Eos # (Auto) 0.1 Baso # (Auto) 0.0 Abs Immat Gran (auto) 0.02 Absolute Neuts (auto) 6.0 Absolute Nucleated RBC 0.000 Nucleated RBC % (auto) 0.0 PT INR VBG pH 7.38 VBG pCO2 36 VBG pO2 93 VBG HCO3 21 L VBG O2 Saturation 98.0 VBG Base Excess -2.8 Sodium 140 Potassium 4.2 Chloride 105 Carbon Dioxide 25 Anion Gap 14 BUN 23 H Creatinine 0.84 Estim Creat Clear Calc 51.7 Estimated GFR > 60 Random Glucose 125 H Lactic Acid Calcium 9.3 Magnesium 1.8 Total Bilirubin 0.9 Direct Bilirubin 0.3 AST 23 ALT 18 Alkaline Phosphatase 106 Troponin I High Sens B-Natriuretic Peptide Total Protein 7.2 Albumin 4.2 COVID-19 (SHY) COVID-19 [employer] Com 09/28/22 09/28/22 06:22 06:22 WBC RBC Hgb Hct MCV MCH MCHC RDW Plt Count MPV Immature Gran % (Auto) Neut % (Auto) Lymph % (Auto) [place] % (Auto) Eos % (Auto) Baso % (Auto) Lymph # (Auto) [place] # (Auto) Eos # (Auto) Baso # (Auto) Abs Immat Gran (auto) Absolute Neuts (auto) Absolute Nucleated RBC Nucleated RBC % (auto) PT INR VBG pH VBG pCO2 VBG pO2 VBG HCO3 VBG O2 Saturation VBG Base Excess Sodium 140 Potassium 4.2 Chloride 105 Carbon Dioxide 23 Anion Gap 16 BUN 23 H Creatinine 0.74 Estim Creat Clear Calc 58.7 Estimated GFR > 60 Random Glucose 96 Lactic Acid Calcium 9.0 Magnesium Total Bilirubin Direct Bilirubin AST ALT Alkaline Phosphatase Troponin I High Sens B-Natriuretic Peptide 221 H Total Protein Albumin COVID-19 (SHY) COVID-19 Clin Com Imaging Radiologist's impression: Impressions Chest X-Ray 09/27/22 20:25 IMPRESSION: Abnormal chest radiograph showing bilateral diffuse airspace disease, possible bilateral trace pleural effusion and tiny trace fluid within the right minor fissure, may represent pulmonary edema versus multilobar pneumonia versus combination thereof. Assessment and Plan (1) Flash pulmonary edema: Status: Acute Flash pulmonary edema in this elderly woman with known calcific mitral stenosis which is been reported as severe, present with acute hypertension flash pulmonary edema after salt load. Most likely cause is a salt loading acute hypertension with probably stiff ventricle causing her to be in pulmonary edema. Although other possible etiologies include significant coronary artery disease with ischemic heart failure and/or underlying renal artery stenosis. Will repeat echocardiogram to assess for LV systolic function and evaluate for regional wall motion abnormality and also evaluate for mitral stenosis is and LV diastolic function if possible. Will also try to obtain a duplex ultrasound. She will need ischemic workup. She is very bothered by her sudden-onset of symptoms and thinks that she needs mitral valve intervention at this point time. Discussed the possible cause of her pulmonary edema. She is still remains very anxious. If she remains stable most likely plan to discharge by tomorrow. Will start on Lasix 20 mg for now which can be then be on a p.r.n. basis as an outpatient. Will also give her labetalol for both blood pressure reduction as well as reduction heart rate which will help both from ischemic as well as from mitral stenosis perspective. Will follow-up tomorrow. Thank you for allowing me to partake in her care Time Spent With Patient Time: Total time managing care of this patient today ____ minutes. Procedures Date of Service Date of Service: 09/28/22
--- NOTE | 2022-09-28 12:02 | HO.PM.IMPN ---
Subjective Subjective Date of Service: 09/28/22 Interval History: Seen in follow up for respiratory failure, pulmonary edema, htn emergency Interval history: Pt is quite anxious. Reporting mild retrosternal chest discomfort that has been near constant for several weeks. Occurring at rest and with exertion. No radiation. Denies any ongoing TIPTON/SOB, has been weaned from O2. Review of Systems Review of Systems: Yes all other systems are reviewed and are negative Physical Exam Vital Signs: Vital Signs: Last Vital Signs Temp 97.9 F 09/28/22 05:58 Pulse 65 09/28/22 11:08 Resp 14 09/28/22 11:08 BP 124/58 L 09/28/22 11:08 Pulse Ox 97 09/28/22 11:08 O2 Del Method 09/28/22 11:08 O2 Flow Rate 2 09/28/22 11:08 FiO2 30 09/27/22 21:14 BMI result Body Mass Index 30.5 Constitutional - Awake and Alert, No apparent distress Eyes - PERRLA, EOMI Cardiovascular - S1S2, RRR, No edema Respiratory - Normal lung expansion, Normal respiratory effort, No respiratory distress, CTA bilaterally Chest- reproducible tenderness to palpation Gastrointestinal - NT / ND; +BS; No rebound or guarding Extremities - no calf tenderness bilaterally, no swelling Skin - Warm/Dry Neurological - Alert & oriented x3 Psychological - Appropriate affect Objective Data Active Medications Acetaminophen (Acetaminophen 325 Mg Tablet) 650 mg PO Q6H PRN PRN Reason: Pain, Mild (Pain Scale 1-3) Last Admin: 09/28/22 06:41 Dose: 650 mg Documented By: PANDA Enoxaparin Sodium (Enoxaparin Sodium 40 Mg/0.4 Ml Syringe) 40 mg SUBCUT Q24H JENNY Last Admin: 09/28/22 00:06 Dose: 40 mg Documented By: PANDA Furosemide (Furosemide 40 Mg/4 Ml Vial) 40 mg IVPUSH ONCE JENNY; Protocol Furosemide (Furosemide 20 Mg Tablet) 20 mg PO DAILY JENNY; Protocol Labetalol HCl (Labetalol Hcl 100 Mg Tablet) 50 mg PO BID JENNY; Protocol Lorazepam (Lorazepam 0.5 Mg Tablet) 0.5 mg PO Q8H PRN PRN Reason: Anxiety Melatonin (Melatonin 3 Mg Tablet) 6 mg PO BEDTIME PRN PRN Reason: Insomnia Multivitamins/Vitamin C (Multivitamin Tablet) 1 tab PO DAILY [facility] Last Admin: 09/28/22 09:52 Dose: 1 tab Documented By: TRUDY Ondansetron HCl (Ondansetron Hcl 4 Mg/2 Ml Vial) 4 mg IVPUSH Q8H PRN PRN Reason: Nausea and Vomiting Pharmacy Consult (Consult Rx Perform Med Rec) 1 each MISCELLANE ONCE PRN PRN Reason: Consult order Pravastatin Sodium (Pravastatin Sodium 40 Mg Tablet) 40 mg PO BEDTIME [facility] Sodium Chloride (0.9 % Sodium Chloride Flush 3 Ml Syringe) 3 ml IVFLUSH QSHIFT [facility] Last Admin: 09/28/22 09:53 Dose: 3 ml Documented By: TRUDY Labs 09/28/22 06:22 09/28/22 06:22 Labs: Laboratory Results - last 24 hr 09/27/22 09/27/22 09/27/22 21:00 21:00 21:00 MCV 89.6 MCH 29.7 MCHC 33.1 RDW 13.0 Plt Count 197 MPV 11.5 Immature Gran % (Auto) 0.3 Neut % (Auto) 82.6 H Lymph % (Auto) 10.1 L [place] % (Auto) 4.1 Eos % (Auto) 2.3 Baso % (Auto) 0.6 Lymph # (Auto) 0.7 L [place] # (Auto) 0.3 Eos # (Auto) 0.2 Baso # (Auto) 0.0 Abs Immat Gran (auto) 0.02 Absolute Neuts (auto) 6.0 Absolute Nucleated RBC 0.000 Nucleated RBC % (auto) 0.0 PT 10.7 INR 0.9 VBG pH VBG pCO2 VBG pO2 VBG HCO3 VBG O2 Saturation VBG Base Excess Anion Gap Estim Creat Clear Calc Estimated GFR Random Glucose Lactic Acid 1.1 Calcium Magnesium Total Bilirubin Direct Bilirubin AST ALT Alkaline Phosphatase Troponin I High Sens B-Natriuretic Peptide Total Protein Albumin COVID-19 (SHY) COVID-19 Clin Com 09/27/22 09/27/22 09/27/22 21:00 21:00 21:00 MCV MCH MCHC RDW Plt Count MPV Immature Gran % (Auto) Neut % (Auto) Lymph % (Auto) [place] % (Auto) Eos % (Auto) Baso % (Auto) Lymph # (Auto) [place] # (Auto) Eos # (Auto) Baso # (Auto) Abs Immat Gran (auto) Absolute Neuts (auto) Absolute Nucleated RBC Nucleated RBC % (auto) PT INR VBG pH VBG pCO2 VBG pO2 VBG HCO3 VBG O2 Saturation VBG Base Excess Anion Gap Estim Creat Clear Calc Estimated GFR Random Glucose Lactic Acid Calcium Magnesium Total Bilirubin Direct Bilirubin AST ALT Alkaline Phosphatase Troponin I High Sens 10.0 B-Natriuretic Peptide 218 H Total Protein Albumin COVID-19 (SHY) Negative COVID-19 Clin Com See Note 09/27/22 09/27/22 09/28/22 21:01 21:11 06:22 MCV 88.9 MCH 28.8 MCHC 32.4 RDW 13.1 Plt Count 194 MPV 11.4 Immature Gran % (Auto) 0.3 Neut % (Auto) 77.7 H Lymph % (Auto) 14.0 L [place] % (Auto) 6.3 Eos % (Auto) 1.2 Baso % (Auto) 0.5 Lymph # (Auto) 1.1 L [place] # (Auto) 0.5 Eos # (Auto) 0.1 Baso # (Auto) 0.0 Abs Immat Gran (auto) 0.02 Absolute Neuts (auto) 6.0 Absolute Nucleated RBC 0.000 Nucleated RBC % (auto) 0.0 PT INR VBG pH 7.38 VBG pCO2 36 VBG pO2 93 VBG HCO3 21 L VBG O2 Saturation 98.0 VBG Base Excess -2.8 Anion Gap 14 Estim Creat Clear Calc 51.7 Estimated GFR > 60 Random Glucose 125 H Lactic Acid Calcium 9.3 Magnesium 1.8 Total Bilirubin 0.9 Direct Bilirubin 0.3 AST 23 ALT 18 Alkaline Phosphatase 106 Troponin I High Sens B-Natriuretic Peptide Total Protein 7.2 Albumin 4.2 COVID-19 (SHY) COVID-19 Clin Com 09/28/22 09/28/22 06:22 06:22 MCV MCH MCHC RDW Plt Count MPV Immature Gran % (Auto) Neut % (Auto) Lymph % (Auto) [place] % (Auto) Eos % (Auto) Baso % (Auto) Lymph # (Auto) [place] # (Auto) Eos # (Auto) Baso # (Auto) Abs Immat Gran (auto) Absolute Neuts (auto) Absolute Nucleated RBC Nucleated RBC % (auto) PT INR VBG pH VBG pCO2 VBG pO2 VBG HCO3 VBG O2 Saturation VBG Base Excess Anion Gap 16 Estim Creat Clear Calc 58.7 Estimated GFR > 60 Random Glucose 96 Lactic Acid Calcium 9.0 Magnesium Total Bilirubin Direct Bilirubin AST ALT Alkaline Phosphatase Troponin I High Sens B-Natriuretic Peptide 221 H Total Protein Albumin COVID-19 (SHY) COVID-19 Clin Com Assessment and Plan (1) Flash pulmonary edema: Status: Acute Plan This is a 77-year-old female with pertinent history of mitral stenosis, mixed hyperlipidemia who presents to the emergency department for evaluation of dyspnea. #.? Acute hypoxemic respiratory failure secondary to pulmonary edema in the setting of hypertensive emergency- hypoxia resolved -Weaned from supplemental O2 -Treated with IV lasix. Change to 20mg PO lasix per cardiology -Monitor I&O -Echo results pending -Appreciate cardiology assistance DEBORAH records requested from [facility] #Hypertensive emergency- resolved -Treated in ED with nitro paste and labetolol -BP controlled today #Chest pain -reproducible to palpation, likely related to anxiety -Trop negative -EKG nonischemic -Echo pending #Mitral valve stenosis -echo pending #Mixed hyperlipidemia: On statin DVT prophylaxis:? Lovenox 40 mg daily Full code Cardiac diet Pt requires ongoing inpt stay for management of flash pulmonary edema initially requiring supplemental oxygen, IV diuresis and expert consultation. Likely dc home tomorrow Time Spent With Patient Time: Total time managing care of this patient today ____ minutes. Quality Stroke Does the patient have a stroke diagnosis?: No VTE Prior VTE?: No VTE Risk Level:: Medical - moderate - high VTE Device Contraindication: Treatment Not Indicated VTE Drug Contraindication: N/A - Med Ordered
[2022-09-28] MEDS: Labetalol HCL 100 MG TABLET 50 MG PO (14:45)
[2022-09-28 14:49] VITALS: BP 120/47; PULSE 75; RESP 18; TEMP 36.8; O2SAT 97
--- NOTE | 2022-09-28 14:50 | PC.NURSE ---
Addendum entered by Tawny Vera 09/28/22 14:51: anxious about taking new medications. Resting comfortably at this time, resp even and unlabored. States she feels out of breath only with ambulation, yet improved from earlier. Original Note: Echo performed at bedside. Pt very anxious about [id number] =new medications
[2022-09-28 17:46] VITALS: BP 153/67; PULSE 94; RESP 20; TEMP 36.5; O2SAT 98
[2022-09-28 19:46] VITALS: BP 122/89; PULSE 77; RESP 20; TEMP 36.6; O2SAT 98
[2022-09-28] MEDS: Pravastatin Sodium 40 MG TABLET PO (20:42)
--- NOTE | 2022-09-28 23:49 | PC.NURSE ---
PT REFUSED HER HS LABETALOL BP WAS 122/89 DR Kelley AWARE
[2022-09-29 03:19] VITALS: BP 135/63; PULSE 71; RESP 16; TEMP 36.5; O2SAT 97
[2022-09-29 05:39] LABS: MANUAL DIFF FLAG NO
[2022-09-29 05:40] LABS: Basophils Absolute Auto 0.1 X10*3/uL (0.0-0.2); Basophils Percent Auto 1.1 % (0-2); Eosinophils Absolute Auto 0.3 X10*3/uL (0.0-0.4); Eosinophils Percent Auto 5.7 % (0-4); Hematocrit 35.7 % (37.0-47.0); Hemoglobin 11.6 g/dl (12.0-16.0); Lymphocytes Absolute Auto 1.2 X10*3/uL (1.2-4.9); Lymphocytes Percent Auto 28.2 % (20-40); Mean Corpuscular HGB Conc 32.5 g/dl (31.0-35.0); Mean Corpuscular Hemoglobin 28.6 pg (27.0-33.0); Mean Corpuscular Volume 88.1 fL (80.0-98.0); Mean Platelet Volume 11.4 fL (9.4-12.3); Monocytes Absolute Auto 0.4 X10*3/uL (0.1-1.2); Monocytes Percent Auto 8.9 % (2-11); Neutrophils Absolute Auto 2.5 x10*3/uL (2.0-8.3); Neutrophils Percent Auto 56.1 % (45-73); Platelet Count 167 X10*3/uL (160-400); Red Blood Count 4.05 X10*6/uL (4.20-5.50); Red Cell Distribution Width 13.2 % (11.0-16.0); White Blood Count 4.4 X10*3/uL (4.8-10.8)
[2022-09-29 06:16] LABS: Anion Gap 17 (12-20); Blood Urea Nitrogen 23 mg/dL (9-16); Carbon Dioxide 23 mmol/L (22-29); Chloride 107 mmol/L (96-108); Creatinine Clr Calc Pharmacy 56.7; Estimated Glomerular Filt Rate > 60; Glucose Random 90 mg/dL (60-115); Potassium 4.5 mmol/L (3.3-5.1); Sodium 142 mmol/L (135-145)
[2022-09-29 08:00] VITALS: BP 172/77; PULSE 63; RESP 18; TEMP 36.7; O2SAT 98
[2022-09-29] MEDS: Multivitamin TABLET 1 TAB PO (09:03)
[2022-09-29] MEDS: Furosemide 20 MG TABLET PO (09:03)
[2022-09-29] MEDS: 0.9 % Sodium Chloride Flush 3 ML SYRINGE IVFLUSH (09:03)
[2022-09-29] MEDS: Labetalol HCL 100 MG TABLET 50 MG PO (09:03)
[2022-09-29] MEDS: LORazepam 0.5 MG TABLET PO (09:07)
--- NOTE | 2022-09-29 12:20 | PM.PNCARD ---
Subjective Subjective Date of Service: 09/29/22 Principal diagnosis: Flash pulmonary edema Interval history: Patient doing well. With anxiety today the blood pressure was elevated. Advise no shortness of breath. 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 Moderate aortic stenosis with normal LV systolic function. Review of Systems Review of Systems Yes all other systems are reviewed and are negative Physical Exam Vital Signs: Last Vital Signs Temp 98.0 F 09/29/22 08:00 Pulse 63 09/29/22 08:00 Resp 18 09/29/22 08:00 BP 172/77 H 09/29/22 08:00 Pulse Ox 98 09/29/22 08:00 O2 Del Method 09/29/22 08:00 O2 Flow Rate 2 09/28/22 11:08 FiO2 30 09/27/22 21:14 BMI result Body Mass Index 30.0 Const General: cooperative, comfortable, no acute distress, alert, awake and anxious Nutritional Appearance: overweight Orientation/consciousness: patient oriented x3 Neck Neck: Yes trachea midline, Yes supple and Yes no JVD Resp Effort & Inspection: normal respiratory effort Auscultation: clear to auscultation bilaterally Cardio Jugular venous distension: no JVD Rate: regular rate Rhythm: regular rhythm Heart sounds: S1 normal heart sound present, S2 normal heart sound present, no click, no gallops and Murmur heart sound present diastolic at the apex and systolic mid, decrescendo, crescendo and harsh GI Auscultation: normal bowel sounds Neuro General: patient oriented x3 and no focal motor deficits Objective Labs and Meds 09/29/22 05:22 09/29/22 05:22 Lab results: Laboratory Results - last 24 hr 09/29/22 09/29/22 05:22 05:22 WBC 4.4 L RBC 4.05 L Hgb 11.6 L Hct 35.7 L MCV 88.1 MCH 28.6 MCHC 32.5 RDW 13.2 Plt Count 167 MPV 11.4 Immature Gran % (Auto) 0.0 Neut % (Auto) 56.1 Lymph % (Auto) 28.2 [place] % (Auto) 8.9 Eos % (Auto) 5.7 H Baso % (Auto) 1.1 Lymph # (Auto) 1.2 [place] # (Auto) 0.4 Eos # (Auto) 0.3 Baso # (Auto) 0.1 Abs Immat Gran (auto) 0.00 Absolute Neuts (auto) 2.5 Absolute Nucleated RBC 0.000 Nucleated RBC % (auto) 0.0 Sodium 142 Potassium 4.5 Chloride 107 Carbon Dioxide 23 Anion Gap 17 BUN 23 H Creatinine 0.76 Estim Creat Clear Calc 56.7 Estimated GFR > 60 Random Glucose 90 Calcium 9.0 Imaging Radiologist's impression: Impressions Renal Ultrasound 09/28/22 13:14 IMPRESSION: No renal calculi or hydronephrosis of either kidney. Renal Ultrasound 09/29/22 09:30 IMPRESSION: -Mildly elevated velocity within the proximal right main renal artery may represent a mild stenosis. This can always be further evaluated with nonemergent CTA imaging of the abdomen if clinically indicated. -Resistive indices of both kidneys are at the upper limits of normal. Clinical correlation recommended. Mild medical renal disease not excluded. Progress Note: A&P Assessment and plan (1) Flash pulmonary edema: Status: Acute Assessment and Plan: Flash pulmonary edema could be secondary to acute salt load and acute hypertension although there is high likelihood of obstructive coronary artery disease. Would recommend her to undergo cardiac catheterization to evaluate for coronary anatomy and evaluate hemodynamics of the aortic as well as mitral valve. Discussed with her but need for further diagnostic workup and transferred to [facility]. She got anxious. We discussed about risks, benefits, alternatives. She understands and agrees and wants to pursue this treatment option. If she has significant coronary artery disease, will most likely require surgical intervention including coronary bypass grafting as well as aortic and mitral valve replacement given that she has both severe mitral stenosis and at least moderate aortic stenosis. She is not sure as to where she wants to pursue this. Continue Lasix 20 mg and labetalol. Advised her to calmed down to prevent a blood pressure from spiking again. Avoidance of salt loading was discussed. 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 It appears that this valve probably can be treated with percutaneous approach with percutaneous balloon valvuloplasty. Further evaluation with cardiac catheterization with hemodynamic evaluation. Will make arrangements for to be transferred to [facility]. Thank you for allowing me to partake in her care Time Spent With Patient Time: Total time managing care of this patient today ____ minutes. Progress Note: Quality Stroke Does the patient have a stroke diagnosis?: No Procedures Date of Service Date of Service: 09/29/22
--- NOTE | 2022-09-29 13:13 | PC.NURSE ---
RN to RN report given to receiving RN at [place] [id number]. ALS transport being arranged.
--- NOTE | 2022-09-29 13:14 | PM.DS ---
DS: Providers Provider Date of Service: 09/29/22 Date of admission: 09/27/22 22:26 Date of discharge: 09/29/22 Primary care physician: Alycia Ruiz MD Attending physician on admission: Mitch Duncan Consults: 09/27/22 22:33 Consult to Cardiology Routine Consulting Provider: [facility] Reason for consultation: hypertensive emergency Has provider been notified: Yes [facility] clinician: Gudelia Campuzano DS: Transfer Hospital Acceptance Reason for Transfer: Cardiac catheterization with high likelihood of obstructive coronary artery disease and hemodynamic evaluation of aortic and mitral valve Name of Facility: [facility] Accepting Provider: Hospitalist team DS: Diagnosis Discharge Diagnosis (1) Flash pulmonary edema: Status: Acute (2) Mitral valve stenosis: Status: Acute DS: Summary Hospital Course Hospital Course: HPI on admission by Dr. Duncan 09/27/22: This is a 77-year-old female with pertinent history of mitral stenosis, mixed hyperlipidemia who presents to the emergency department for evaluation of dyspnea.? Patient presents today for sudden onset of dyspnea.? Upon EMS arrival, patient was found to be hypoxemic and saturating in the low 80s on room air.? When she arrived, patient's blood pressure was 196/99.? Patient was found to have bilateral crackles and imaging was concerning for pulmonary edema.? Patient was placed on CPAP and nitro paste and labetalol ordered.? Patient states she never has had high blood pressure.? She underwent DEBORAH at [facility] in August when she was told that she has mitral stenosis.? Patient was asked to follow up with repeat echo in 6 months.? Patient states her blood pressure is usually around 140/90.? She was advised to take metoprolol but refused.? Upon my evaluation, patient states her dyspnea improved and was on 2 L supplemental oxygen.? Patient denies fever, chills, chest discomfort, palpitations, abdominal pain, changes in urinary or bowel habits. Hospital course: Patient admitted for flash pulmonary edema. Evaluated by Cardiology. This is possibly related to salt loading with hypertensive emergency versus highly probable obstructive coronary artery disease. She was diuresed with IV Lasix and switch to 20 mg p.o. Lasix on day of discharge. She was successfully weaned from supplemental O2. She was started on labetalol 50 mg twice Daily. Throughout admission, patient was quite anxious despite attempts at redirection and advised on calming techniques. Required p.o. lorazepam as blood pressure was quite fluctuant as a result of her anxiety. There is no recurrence of shortness of breath/hypoxia. Renal duplex was performed which showed mild renal artery stenosis but no other significant abnormality. Echocardiogram showed normal LV systolic function with EF 60-65% with impaired relaxation filling pattern though filling pressures could not be evaluated due to presence of mitral stenosis. There is moderate aortic stenosis noted as well as severe mitral stenosis, rheumatic in appearance. There is also [id number] elevation of the right bronchus systolic pressure. Per Dr. Alonso in Cardiology, the patient will be transferred to [facility] for cardiac catheterization to evaluate for coronary anatomy and evaluate hemodynamics is the aortic as well as the mitral valve. She should continue Lasix 20 mg and labetalol 50 mg twice daily. She was educated on the avoidance of soup salt loading. Status at Discharge Functional status at discharge: independent ambulation Overall status at discharge: patient is progressing back to baseline Time Spent with Patient Time attestation: Total time managing care of this patient today ____ minutes. Discharge coordination time: Greater than 30 minutes Quality: Safe Use of Opioids Does Pt have an Active Cancer Diagnosis on the Problem List?: No Quality: Stroke Does the patient have a stroke diagnosis?: No Physical Exam Vital Signs: Vital Signs: Last Vital Signs Temp 98.0 F 09/29/22 08:00 Pulse 63 09/29/22 08:00 Resp 18 09/29/22 08:00 BP 172/77 H 09/29/22 08:00 Pulse Ox 98 09/29/22 08:00 O2 Del Method 09/29/22 08:00 O2 Flow Rate 2 09/28/22 11:08 FiO2 30 09/27/22 21:14 BMI result Body Mass Index 30.0 Constitutional - Awake and Alert, No apparent distress Eyes - PERRLA, EOMI Cardiovascular - S1S2, RRR, No edema Respiratory - Normal lung expansion, Normal respiratory effort, No respiratory distress, CTA bilaterally Gastrointestinal - NT / ND; +BS; No rebound or guarding Extremities - no calf tenderness bilaterally, no swelling Skin - Warm/Dry Neurological - Alert & oriented x3 Psychological - very anxious, ruminating DS: Data Data Completed and Pending Labs on day of discharge: Laboratory Results - last 24 hr 09/29/22 09/29/22 05:22 05:22 WBC 4.4 L RBC 4.05 L Hgb 11.6 L Hct 35.7 L MCV 88.1 MCH 28.6 MCHC 32.5 RDW 13.2 Plt Count 167 MPV 11.4 Immature Gran % (Auto) 0.0 Neut % (Auto) 56.1 Lymph % (Auto) 28.2 [place] % (Auto) 8.9 Eos % (Auto) 5.7 H Baso % (Auto) 1.1 Lymph # (Auto) 1.2 [place] # (Auto) 0.4 Eos # (Auto) 0.3 Baso # (Auto) 0.1 Abs Immat Gran (auto) 0.00 Absolute Neuts (auto) 2.5 Absolute Nucleated RBC 0.000 Nucleated RBC % (auto) 0.0 Sodium 142 Potassium 4.5 Chloride 107 Carbon Dioxide 23 Anion Gap 17 BUN 23 H Creatinine 0.76 Estim Creat Clear Calc 56.7 Estimated GFR > 60 Random Glucose 90 Calcium 9.0 Preliminary micro results at discharge 09/27/22 21:00 Blood Culture - Preliminary Blood - Venous No growth after 24 hours. 09/27/22 21:00 Blood Culture - Preliminary Blood - Venous No growth after 24 hours. Discharge Plan Discharge Anticipated Discharge Date/Time: 09/29/22 13:38 Patient Disposition: Xfer Acute Care Hospital Discharge Diagnosis: Flash pulmonary edema, mitral valve stenosis Referrals: Alycia Ruiz MD [Primary Care Provider] - 1 Week Discharge Medications: New furosemide 20 mg Tablet 20 mg PO DAILY Qty: 30 0RF Protocol: Hold for SBP< HOLD for SBP < : 90 labetalol 100 mg Tablet 50 mg PO BID Qty: 30 0RF Protocol: Hold for SBP/HR < HOLD for SBP < : 90 HOLD for HR < : 60 Continued multivitamin Tablet 1 tab PO DAILY pravastatin 40 mg Tablet 40 mg PO BEDTIME coQ10 (ubiquinol) 100 mg Capsule 100 mg PO DAILY Discharge Orders: Discharge Order (Routine); Ordered 09/29/22 Ordered By: Gudelia Campuzano Diet: Low salt diet Activity on Discharge: As tolerated Stand Alone Forms: Patient Portal Discharge page Care Plan Goals: Prevent recurrence of flash edema- avoid salt loading Manage mitral valve stenosis Health Concerns: Severe mitral valve stenosis Aortic valve stenosis Flash pulmonary edema Plan of Treatment: Transfer to [facility] to evaluate for cardiac catheterization to evaluate for any coronary artery disease and evaluate the hemodynamics of the aortic and mitral valve Continue labetalol 50 mg twice Daily Continue Lasix 20 mg daily Avoid salt loading Manage anxiety with mindfulness techniques, relaxation Assessment: As above
--- NOTE | 2022-09-29 15:03 | MHC.CM.PN ---
PT BEING TRANSFERRED TO [facility] FOR CARDIAC CATH
== END 2022-09-29 16:53 | disposition short-term general hospital (02) | DRG 189 ==
LOC: HO.ED 22:45 → HO.EDOVER 23:06 → HO.S3 09-28 15:13
PROVIDERS: Admitting Provider Student in an Organized Health Care Education/Training Program; Emergency Provider Emergency Medicine; PCP Internal Medicine; Visit Provider Physician Assistant
DX: J81.0 Acute pulmonary edema (principal); J96.01 Acute respiratory failure with hypoxia; I16.1 Hypertensive emergency; I25.10 Atherosclerotic heart disease of native coronary artery without angina pectoris; E78.2 Mixed hyperlipidemia; I05.0 Rheumatic mitral stenosis; F41.9 Anxiety disorder, unspecified; Z20.822 Contact with and (suspected) exposure to COVID-19; Z79.899 Other long term (current) drug therapy
CPT/HCPCS: 36415; 71045; 76775; 80048; 80076; 82803; 83605; 83735; 83880; 84484; 85025; 85610; 87040; 87635; 93005; 93306; 93975; 96374; 96375; 99285; J1650; J1940

== ENCOUNTER 2024-10-27 14:36 | Outpatient (REF) | payer MEDICARE, BC, SELFPAY ==
--- OUTSIDE RECORDS SUMMARY | 2024-10-27 17:17 | XMS_ITS | Clinical Summary ---
Author Organization [facility] Address [address] [place] [address] Care Team Providers Care Technology Applications Teacher Name Role Phone Alycia Ruiz Primary Care Provider [phone] Allergies Active Allergy Reactions Criticality Noted Date Comments Sulfa (Sulfonamide Antibiotics) Sleep Disturbance 10/12/2022 Social History Tobacco Use Types Packs/Day Years Used Date Smoking Tobacco: Never Assessed Comments No Sex and Gender Information Value Date Recorded Sex Assigned at Not on file Legal Sex Female 6:20 AM EDT Gender Identity Not on file Sexual Orientation Not on file Last Filed Vital Signs Vital Sign Reading Time Taken Comments Blood Pressure 121/64 03/18/2023 7:45 PM EDT Pulse 67 03/18/2023 7:45 PM EDT Temperature 36.5 ??C (97.7 ??F) 03/18/2023 7:45 PM ED T Respiratory Rate 20 03/18/2023 7:45 PM EDT Oxygen Saturation 98% 03/18/2023 7:45 PM EDT Inhaled Oxygen Concentration - - Weight 72.1 kg (159 lb) 03/18/2023 7:45 PM EDT Height 157.5 cm (5' 2 ) 03/18/2023 7:45 PM EDT Body Mass Index 29.08 03/18/2023 7:45 PM EDT Plan of Treatment Health Maintenance Due Date Last Done Comments Medicare AWV 1946 Osteoporosis Screening 1993 Zoster Vaccines (2 of 3) 11/27/2016 10/02/2016 RSV Vaccine (60+ years old and patients) (1 - 1-dose 75+ series) 2018 COVID-19 Vaccine ( season) 2024 01/10/2022, 08/29/2021, 12/16/2020, Additional history exists Alcohol/Substance Use Screening 07/28/2024 Depression Screening and Follow-Up 07/28/2024 Health Care Proxy Review 07/28/2024 Social Drivers of Health Annual Screening 07/28/2024 Influenza Vaccine (Season Ended) 2025 04/05/2022, 04/05/2022, 04/28/2021, Additional history exists DTaP,Tdap,and Td Vaccines (2 - Td or Tdap) 09/08/2025 09/08/2015 Pneumococcal Vaccine: 50+ Years Completed 09/02/2014, 04/26/2009 Hepatitis B Vaccines Aged Out No long er eligible based on patient's age to complete this topic Insurance [facility] [employer]ICARE Care Teams Technology Applications Teacher Relationship Specialty Start Date End Date Alycia Ruiz [address] [place] [address], [address] [place] [id number] PCP - General Internal Medicine 10/12/22
--- OUTSIDE RECORDS SUMMARY | 2024-10-27 17:17 | XMS_ITS | Data Portability ---
Author Organization [facility], , [facility] Address [address] [place] [address] Assessment Encounter Date Assessment Date Assessment LastModified by Organization Details LastModified Time 05/13/2016 05/13/2016 Patient performed stretches well and started with upper trunk rotation ex. She will continue with scar mobs and TP positioning. Continue with PT to advance strengthening. Not available 05/13/2016 13:32:09 05/23/2016 05/23/2016 Patient has improved ankle ROM with stretching and manual techniques. She will focus more on overall cardiovasc exercise for improved muscle tone for her c/o neck pain, sciatica. Her c/o overactive bladder are addressed again with instruction on recognizing stress, rushing to the bathroom with the belief she cannot hold her urine. She also knows of certain bladder irritants such as grapefruit juice and caffeine. She will perform anal wink ex, continue bicycling and core strengthening. Follow up next week. Not available 05/23/2016 12:39:45 05/30/2016 05/30/2016 Patient feels better after tx today and is instructed to continue with somato functional release technique. She will continue stretching and balance ex. She will resume wearing of compression stockings to see if reduction of edema will result in less ankle pain. Continue with 2 more PT sessions for US and ex. Not available 05/30/2016 12:38:52 06/03/2016 06/03/2016 Patient is discouraged with pains in ankle and hip and generally feeling tired. She will continue with HEP and follow up next week. Not available 06/03/2016 16:09:24 06/06/2016 06/06/2016 Patient with left ankle pain has been seen x10. She performs HEP well including stretching and strengthening ex. US to anterolat ankle x3 has proven beneficial. She feels confident in ex plan to continue with strengthening and stretching. She is discharged from PT with improved positioning scores, meeting goal of 1- <20% difficulty. Not available 06/06/2016 15:27:27 Plan of Treatment Reminders Order Date Submit Date Provider Last Modified By Organization Details Last Modified Time Details Appointments None record ed. Lab None record ed. Referral None record ed. Procedures None record ed. Surgeries None record ed. Imaging None record ed. Medication Orders None record ed. Patient TargetsNo targets recorded. Patient InstructionsNo instructions recorded. Reason for Referral None Reported. Problems Name Problem SNOMED Code Status Onset Date Resolution Date Notes Provider Name and Address Organization Details Recorded Time Knee pain Completed 201504/23/2016 Natalya Henson, PT [address] [place], [address] , [facility] 6 14:11:31 Ankle pain 438352560 Active 2015 Natalya Henson, PT [address] [place], [address] , [facility] 6 16:56:10 Open trimalleol ar fracture 85045265 Active 2000 Not Available [facility] 3 03:10:41 Closed trimalleol ar fracture 4298253 Active 1999 Not Available [facility] 3 03:10:41 Problem Notes None recorded. Procedures Surgical History Date Name Laterality Status Provider Name and Address Organization Details Recorded Time 06/06/20 16 60539: Therapeutic Exercise completed Natalya Henson, PT [address] [place], [address], [facility] 06/06/2016 14:33:39 06/06/20 16 78342: Manual Therapy completed Natalya Henson, PT [address] [place], [address], [facility] 06/06/2016 14:33:58 06/06/20 16 98598: Ultrasound (1:1) completed Natalya Henson, PT [address] [place], [address], [facility] 06/06/2016 12:23:52 06/03/20 16 32471: Therapeutic Exercise completed Natalya Henson, PT [address] [place], [address], [facility] 06/03/2016 16:06:53 06/03/20 16 94924: Manual Therapy completed Natalya Henson, PT [address] [place], [address], [facility] 06/03/2016 16:06:47 06/03/20 16 43330: Ultrasound (1:1) completed Natalya Henson, PT [address] [place], [address], [facility] 06/03/2016 16:05:54 05/30/20 16 36435: Therapeutic Exercise completed Natalya Henson, PT [address] [place], [address], [facility] 05/30/2016 12:36:22 05/30/20 16 73353: Manual Therapy completed Natalya Henson, PT [address] [place], [address], [facility] 05/30/2016 12:36:09 05/30/20 16 56413: Ultrasound (1:1) completed Natalya Henson, PT [address] [place], [address], [facility] 05/30/2016 12:35:25 05/23/20 16 94614: Therapeutic Exercise completed Natalya Henson, PT [address] [place], [address], [facility] 05/23/2016 12:31:25 05/13/20 16 98590: Manual Therapy completed Natalya Henson, PT [address] [place], [address], [facility] 05/13/2016 11:06:36 05/08/20 16 55111: Therapeutic Exercise completed Natalya Henson, PT [address] [place], [address], [facility] 05/10/2016 21:09:55 05/08/20 16 12178: Manual Therapy completed Natalya Henson, PT [address] [place], [address], [facility] 05/10/2016 21:08:05 05/06/20 16 41203: Therapeutic Exercise completed Natalya Henson, PT [address] [place], [address], [facility] 05/06/2016 14:21:51 05/06/20 16 95183: Manual Therapy completed Natalya Henson, PT [address] [place], [address], [facility] 05/06/2016 14:22:59 05/02/20 16 77247: Therapeutic Exercise completed Natalya Henson, PT [address] [place], [address], [facility] 05/02/2016 16:55:56 04/30/20 16 12804: Therapeutic Exercise completed Natalya Henson, PT [address] [facility] [place], [address], [facility] 04/30/2016 12:38:52 04/30/20 16 84864: Manual Therapy completed Natalya Henson, PT [address] [facility] [place], [address], [facility] 04/30/2016 12:43:12 04/23/20 16 81764: PT Evaluation completed Natalya Henson, PT [address] [facility] [place], [address], [facility] 04/23/2016 12:54:34 01/12/20 09 Treatment and Advice completed Mandy Gibson, PT [address] [place], [address], [facility] 01/11/2009 09:28:42 12/07/19 09 Treatment and Advice completed Mandy Gibson, PT [address] [place], [address], [facility] 12/06/2008 09:30:49 12/02/19 09 Treatment and Advice completed Mandy Gibson, PT [address] [place], [address], [facility] 12/01/2008 09:29:09 11/25/19 09 Treatment and Advice completed Mandy Gibson, PT [address] [place], [address], [facility] 11/24/2008 13:12:00 11/18/19 09 Treatment and Advice completed Mandy Gibson, PT [address] [place], [address], [facility] 11/18/2008 10:25:09 11/16/19 09 Treatment and Advice completed Mandy Gibson, PT [address] [place], [address], [facility] 11/15/2008 10:01:43 11/09/19 09 Treatment and Advice completed Mandy Gibson, PT [address] [place], [address], [facility] 11/08/2008 10:49:08 06/05/20 01 Laparoscopy remove adnexa completed Not Available [facility] 06/13/2011 06:05:52 Imaging Results None recorded. Procedure Notes None recorded. Medical Equipment None Reported. Vitals None Recorded Social History None recorded. Functional Status None recorded. Mental Status None recorded. Family History Nothing Reported. Medical History No medical history recorded. Gynecological HistoryNo gynecological history recorded. Obstetrics History GPAL:G 0 P 0 0 0 0 Past Encounters Encounter ID Performer Location Encounter Start Date Encounter Closed Date Diagnosis/Indication Diagnosis SNOMED-CT Code Diagnosis ICD10 Code Diagnosis Note [id number] Physical Therapy, [address] [place] [address] 06/16/2000 15:30:00 08/17/2008 02:02:29 [id number] Physical Therapy, [address] [place] [address] 06/23/2000 15:30:00 08/17/2008 02:02:29 [id number] Physical Therapy, [address] [place] [address] 06/30/2000 17:00:00 08/17/2008 02:02:29 [id number] Physical Therapy, [address] [place] [address] 07/02/2000 17:00:00 08/17/2008 02:02:29 [id number] Physical Therapy, [facility] [place] [facility] [place] [address] 07/14/2000 17:00:00 08/17/2008 02:02:29 [id number] Physical Therapy, [address] [place] [address] 07/16/2000 17:00:00 08/17/2008 02:02:29 [id number] Physical Therapy, [address] [place] [address] 07/23/2000 17:00:00 08/17/2008 02:02:29 [id number] Physical Therapy, [facility] [place] [address] 07/30/2000 17:30:00 08/17/2008 02:02:29 [id number] Physical Therapy, [facility] [place] [address] 08/04/2000 17:30:00 08/17/2008 02:02:29 [id number] Physical Therapy, [facility] [place] [address] 08/06/2000 15:30:00 08/17/2008 02:02:29 [id number] Physical Therapy, [facility] [place] [address] 06/11/2000 15:00:00 08/17/2008 02:02:29 [id number] Physical Therapy, [facility] [place] [address] 08/11/2000 17:30:00 08/17/2008 02:02:29 [id number] Physical Therapy, [facility] [place] [address] 08/18/2000 17:30:00 08/17/2008 02:02:29 [id number] Physical Therapy, [facility] [place] [address] 08/20/2000 17:30:00 08/17/2008 02:02:29 [id number] Physical Therapy, [facility] [place] [address] 08/25/2000 17:30:00 08/17/2008 02:02:29 [id number] Physical Therapy, [facility] [place] [address] 08/27/2000 17:30:00 08/17/2008 02:02:29 [id number] Physical Therapy, [facility] [place] [address] 09/03/2000 17:30:00 08/17/2008 02:02:29 [id number] Physical Therapy, [facility] [place] [address] 09/08/2000 17:30:00 08/17/2008 02:02:29 [id number] Physical Therapy, [facility] [place] [address] 09/10/2000 17:30:00 08/17/2008 02:02:29 [id number] Physical Therapy, [facility] [place] [address] 09/17/2000 17:30:00 08/17/2008 02:02:29 [id number] Physical Therapy, [facility] [place] [address] 09/24/2000 17:30:00 08/17/2008 02:02:29 [id number] Physical Therapy, [facility] [place] [address] 10/01/2000 17:30:00 08/17/2008 02:02:29 [id number] Physical Therapy, [facility] [place] [address] 06/25/2000 15:30:00 08/17/2008 02:02:29 [id number] Physical Therapy, [facility] [place] [address] 06/18/2000 15:30:00 08/17/2008 02:02:29 [id number] Physical Therapy, [facility] [place] [address] 09/22/2000 17:30:00 08/17/2008 02:02:29 [id number] Physical Therapy, [facility] [place] [address] 07/09/2000 17:00:00 08/17/2008 02:02:29 [id number] Physical Therapy, [facility] [place] [address] 07/07/2000 17:00:00 08/17/2008 02:02:29 [id number] Physical Therapy, [facility] [place] [address] 04/30/2001 10:00:00 08/17/2008 02:02:29 [id number] Physical Therapy, [facility] [place] [address] 05/14/2001 17:30:00 08/17/2008 02:02:29 [id number] Physical Therapy, [facility] [place] [address] 11/02/2008 09:00:58 11/02/2008 09:46:00 [id number] Physical Therapy, [facility] [place] [address] 11/08/2008 08:57:14 11/08/2008 11:32:03 [id number] Physical Therapy, [facility] [place] [address] 11/10/2008 08:53:30 11/10/2008 11:12:54 [id number] Physical Therapy, [facility] [place] [address] 11/15/2008 08:46:02 11/16/2008 08:42:12 [id number] Physical Therapy, [facility] [place] [address] 11/17/2008 09:27:52 11/18/2008 10:26:51 [id number] Physical Therapy, [facility] [place] [address] 11/22/2008 08:57:57 11/22/2008 16:27:42 [id number] Physical Therapy, [facility] [place] 11/24/2008 08:52:20 11/25/2008 09:50:12 [id number] Physical Therapy, [facility] [place] [address] 11/29/2008 09:45:52 11/30/2008 09:37:16 [id number] Physical Therapy, [facility] [place] [address] 12/01/2008 08:57:13 12/05/2008 10:18:02 [id number] Physical Therapy, [facility] [place] [address] 12/06/2008 09:02:50 12/07/2008 10:31:21 [id number] Physical Therapy, [facility] [place] [address] 12/08/2008 08:51:02 12/09/2008 09:28:47 [id number] Physical Therapy, [facility] [place] [address] 12/13/2008 08:55:45 12/14/2008 10:59:20 [id number] Physical Therapy, [facility] [place] [address] 12/15/2008 08:45:21 12/16/2008 09:01:51 [id number] Physical Therapy, [facility] [place] [address] 12/21/2008 09:27:50 12/26/2008 11:48:40 [id number] Physical Therapy, [facility] [place] [address] 12/28/2008 09:57:17 12/30/2008 11:55:24 [id number] Physical Therapy, [facility] [place] [address] 01/04/2009 09:40:58 01/04/2009 16:22:17 [id number] Physical Therapy, [facility] [place] [address] 01/11/2009 09:00:52 01/11/2009 11:28:48 [id number] Physical Therapy, [facility] [place] [address] 03/15/2009 09:03:59 03/20/2009 09:14:34 [id number] Physical Therapy, [facility] [place] [address] 03/29/2009 09:06:04 04/05/2009 14:52:49 [id number] Physical Therapy, [facility] [place] [address] 04/07/2009 08:58:17 04/10/2009 12:16:10 [id number] Physical Therapy, [facility] [place] [address] 04/14/2009 09:06:51 04/14/2009 14:43:26 [id number] Physical Therapy, [facility] [place] [address] 04/19/2009 10:39:56 04/20/2009 13:26:05 [id number] Physical Therapy, [facility] [place] [address] 10/24/2009 15:17:22 10/25/2009 14:26:19 [id number] Physical Therapy, [facility] [place] [address] 10/26/2009 13:24:54 10/27/2009 08:57:47 [id number] Physical Therapy, [facility] [place] [address] 10/31/2009 09:33:48 11/01/2009 12:28:57 [id number] Physical Therapy, [facility] [place] [address] 11/02/2009 09:31:33 11/03/2009 12:01:55 [id number] Physical Therapy, [facility] [place] [address] 11/08/2009 09:37:56 11/09/2009 13:17:10 [id number] Natalya Henson PT Physical Therapy, [facility] [place] [address] 04/23/2016 09:53:21 04/23/2016 14:34:05 Ankle pain [id number] M25.977 [id number] Natalya Henson, PT Physical Therapy, [address] [place] [address] 04/30/2016 11:24:06 04/30/2016 14:04:05 Ankle pain [id number] M25.259 [id number] Natalya Henson, PT Physical Therapy, [address] [place] [address] 05/02/2016 13:59:24 05/03/2016 09:33:43 Ankle pain [id number] M25.005 [id number] Natalya Henson, PT Physical Therapy, [address] [place] [address] 05/06/2016 09:49:04 05/06/2016 14:40:36 Ankle pain [id number] M25.080 [id number] Natalya Henson, PT Physical Therapy, [address] [place] [address] 05/08/2016 11:24:35 05/13/2016 13:54:01 Ankle pain [id number] M25.494 [id number] Natalya Henson, PT Physical Therapy, [address] [place] [address] 05/13/2016 10:29:49 05/13/2016 14:35:47 Ankle pain [id number] M25.603 [id number] Natalya Henson, PT Physical Therapy, [address] [place] [address] 05/23/2016 10:25:01 05/23/2016 14:13:43 Ankle pain [id number] M25.953 [id number] Natalya Henson, PT Physical Therapy, [address] [place] [address] 05/30/2016 11:03:32 05/30/2016 14:22:48 Ankle pain [id number] M25.890 [id number] Natalya Henson, PT Physical Therapy, [address] [place] [address] 06/03/2016 13:41:27 06/04/2016 14:59:15 Ankle pain [id number] M25.097 [id number] Natalya Henson, PT Physical Therapy, [address] [place] [address] 06/06/2016 10:15:05 06/06/2016 15:31:33 Ankle pain [id number] M25.572 Health Concerns Section Related Observation LastModified by Organization Detai ls LastModified Time None Recorded Concern Status LastModified by Organization Details LastModified Time None Recorded Advance Directives Directive None Recorded Payers Encounter Date Sequence Insurance Name Policy Number Policy Soria Covered Member ID Soria Member ID Guarantor Name 05/13/2016 2 [place] [employer] 104 Autumn Marie [id number] Autumn Marie 05/13/2016 1 [place] [facility] [facility] Autumn Marie [id number] A Autumn Marie 05/23/2016 2 [facility] 104 Autumn Marie [id number] Autumn Marie 05/23/2016 1 [place] [facility] Autumn Marie [id number] A Autumn Marie 05/30/2016 2 [facility] 104 Autumn Marie [id number] Autumn Marie 05/30/2016 1 [place] [facility] Autumn Marie [id number] A Autumn Marie 06/03/2016 2 [facility] 104 Autumn Marie [id number] Autumn Marie 06/03/2016 1 [place] [facility] Autumn Marie [id number] A Autumn Marie 06/06/2016 2 [facility] 104 Autumn Marie [id number] Autumn Marie 06/06/2016 1 [place] [facility] Autumn Marie [id number] A Autumn Marie OBGyn Episode No OBEpisode recorded.
--- OUTSIDE RECORDS SUMMARY | 2024-10-27 17:18 | XMS_ITS | Referral Summary ---
Author Organization [facility] Address [address] [place] [address] Care Team Providers [employer] Name Role Phone Alycia Ruiz Primary Care Provider [phone] Allergies Active Allergy Reactions Criticality Noted Date [...] 03/18/2023 7:45 PM EDT Plan of Treatment Not on file Insurance BCBS FEDERAL MEDICARE Care Teams [employer] Relationship Specialty Start Date End Date Alycia Ruiz [address] [place] [address], [address] [place] [address] PCP - General Internal Medicine 10/12/22
== END 2024-10-27 14:37 | disposition home or self-care (01) ==
LOC: HO.MANLDS 14:36
PROVIDERS: Visit Provider Internal Medicine
DX: Z13.89 Encounter for screening for other disorder (principal)

== ENCOUNTER 2025-07-05 13:58 | Outpatient (AMB) | payer MEDICARE, BC, SELFPAY ==
--- NOTE | 2025-07-05 14:12 | MHC.OFFVIS ---
Intake Visit Reasons: renal mass Intake Note: New Patient is present for Renal Mass Urology Rx: VITB6, VIT-C Blood Thinners:Eliquis Imaging completed: ABD MRI 05/26/25 Household Appliance Mechanic Required: No Accompanied by: Self / Same As Patient Allergies Unable to Assess Allergy (Verified 07/05/25 14:43) HPI Comments Details: Autumn is a pleasant female. She is a patient of Dr. Ruiz. She is seen for the following urologic conditions - renal mass Right renal mass detected as incidentaloma No symptoms MRI 2.1 cm right upper pole Prior imaging 2 years ago no evidence of lesion Suspicious Discussion today regarding interval surveillance versus active therapy Autumn otherwise has very good performance status. Minimal medication use with well-controlled blood pressure. Her mother lived into her 90s. The knowledge that she has potential renal cancer does create baseline anxiety. She is leaning towards intervention particularly targeted ablation. Risks and benefits discussed. This will be organized. [facility] Medical History (Updated 07/06/25 @ 06:52 by Mariano Harrison MD) Mixed hyperlipidemia Mitral valve stenosis Social History Household Members: None Housing: Apartment Do you presently have visiting nurse or other home services: No Patient Tobacco Use Status: Never used Tobacco Review of Systems Const Denies chills and Denies fever(s) Card Reports no additional complaints and Denies syncope Resp Denies cough GI Denies abdominal pain and Denies heartburn Reports as per HPI and Denies change in libido Neuro Denies syncope Psych Denies change in libido Endo Denies change in libido Physical Exam Const General: cooperative, healthy appearing, comfortable and no acute distress Orientation/consciousness: patient oriented x3 HEENT Face and sinus: Yes normal facial exam Mouth: moist mucous membranes Neck Neck: Yes normal visual inspection, Yes full ROM and Yes trachea midline Chest Chest palpation & inspection: normal inspection of the chest Resp Effort & Inspection: normal respiratory effort, able to speak in complete sentences and no respiratory distress GI Inspection: Yes normal to inspection Back/Spine/Pelvis Cervical Spine: normal cervical lordosis Thoracic/Lumbar Spine: thoracic and lumbar spine normal to inspection Skin General skin exam: no rashes or lesions noted Neuro General: patient oriented x3, gait normal, tone normal and moves all extremities Extrem General: Yes normal to inspection and Yes capillary refill normal Assessment & Plan Assessment & Plan (1) Renal mass: Code(s): N28.89 - Other specified disorders of kidney and ureter Category: Medical Plan Risks, benefits and alternatives to therapy were discussed. These include but are not limited to infection, bleeding, damage to local organs and tissues, need for further interventions. Anesthetic risks regarding cardiac arrhythmia, blood clots, and potential mortality were discussed. The patient understands the typical recovery time and the outpatient nature of the procedure. After consideration of these risks the patient gives full informed consent and they wish to move ahead with the procedure. - renal mass ablation right side Orders: Referrals Interventional Radiology Referral N28.89 - Other specified disorders of kidney and ureter Patient Instructions: This note is constructed using voice recognition software. While every effort has been made to ensure accuracy net mvc developer errors may have been included. Imaging studies, laboratory and physical exam results were discussed and reviewed in detail. No major barriers to patient understanding were identified. An opportunity to ask questions regarding the treatment plan was provided. All questions were answered. The patient expressed understanding and agreement with the above treatment plan. The patient is aware they should contact our office by phone for worsening of their current condition or the appearance of new urologic symptoms. Compliance is encouraged with any medications and followup testing that is ordered. It is a privilege to participate in the urologic care of your patient. If you have any questions or concerns regarding treatment for the above conditions, or other urologic issues, please do not hesitate to contact me. The office telephone contact is [phone]. Sincerely, Dr Mariano Harrison MD, [facility] - Urology Compassionate Specialist Care for the Genitourinary System Coding Level of Care Code New Pt Level 4 (40820) Diagnoses Renal mass N28.89
--- OUTSIDE RECORDS SUMMARY | 2025-07-05 19:59 | XMS_ITS | Clinical Summary ---
Author Organization [facility] Address [address] [place] [address] Care Team Providers Care Cellular Equipment Installer Name Role Phone Alycia Ruiz Primary Care Provider [phone] Allergies Active Allergy Reactions Criticality Noted Date Comments Sulfa (Sulfonamide Antibiotics) Sleep Disturbance 10/12/2022 Social History Tobacco Use Types Packs/Day Years Used Date Smoking Tobacco: Never Assessed Comments No Sex and Gender Information Value Date Recorded Sex Assigned at Female 06/17/2025 12:06 PM EST Legal Sex Female 6:20 AM EDT Gender Identity Female 06/17/2025 12:06 PM EST Sexual Orientation Not on file Last Filed Vital Signs Vital Sign Reading Time Taken Comments Blood Pressure 121/64 03/18/2023 7:45 PM EDT Pulse 67 03/18/2023 7:45 PM EDT Temperature 36.5 C (97.7 F) 03/18/2023 7:45 PM EDT Respiratory Rate 20 03/18/2023 7:45 PM EDT [...] patients) (1 - 1-dose 75+ series) 2018 Alcohol/Substance Use Screening 07/28/2024 Depression Screening and Follow-Up 07/28/2024 Fall Risk Screening 07/28/2024 Health Care Proxy Review 07/28/2024 Social Drivers of Health Annual Screening 07/28/2024 Influenza Vaccine (#1) 2025 2, 04/05/2022, 04/28/2021, Additional history exists COVID-19 Vaccine ( season) 2025 01/10/2022, 08/29/2021, 12/16/2020, Additional history exists DTaP,Tdap,and Td Vaccines (2 - Td or Tdap) 09/08/2025 09/08/2015 Pneumococcal Vaccine: 50+ Years Completed 09/02/2014, 04/26/2009 Hepatitis B Vaccines Aged Out No long er eligible based on patient's age to complete [place] [id number] [facility] MEDICARE Care Teams Cellular Equipment Installer Relationship Specialty Start Date End Date Alycia Ruiz [address] [place] [address], [address] [place] [id number] PCP - General Internal Medicine 10/12/22
== END 2025-07-05 15:30 | disposition home or self-care (01) ==
LOC: HO.HUSH 13:59
PROVIDERS: PCP Internal Medicine; Visit Provider Urology
DX: N28.89 Other specified disorders of kidney and ureter (principal)
CPT/HCPCS: 99204

== ENCOUNTER → 2025-07-05 13:58 | Outpatient (BNVA) | payer MEDICARE, BC, SELFPAY | PROVIDERS: PCP Internal Medicine; Visit Provider Urology | DX: N28.89 Other specified disorders of kidney and ureter (principal) | CPT/HCPCS: 99202 ==